=== PATIENT | male | born 1950 | race Caucasian/White ===

== ENCOUNTER 2018-11-08 14:51 | Inpatient (IN) | payer OTHER ==
--- NOTE | 2018-11-08 15:20 | EDPHY ---
H & P Smoking Status: Never smoked Time Seen by Provider: 11/08/18 14:55 HPI/ROS: CHIEF COMPLAINT: Fall HISTORY OF PRESENT ILLNESS: Patient is a 68-year-old male who presents emergency department after having a fall. The patient was changing his for his filter. He was standing on the 2nd step of a step stool. He states he had a mechanical fall lost his balance. "I did account from my belly."Patient fell back landing on his left leg. He may have struck his head but he has not think that was substantial. He did not lose consciousness. He subsequently tried to stand and walk. His left knee "gave out."He has significant pain in his left knee. He has mild pain in his left ankle. He has mild discomfort in his right knee. Patient states he struck his head on the counter when he fell the 2nd time. He did not lose consciousness. He has mild neck discomfort. No numbness or tingling. No visual change. No vomiting. Patient denies any preceding symptoms to the event. REVIEW OF SYSTEMS: 10 systems were reveiwed and are negative with the exception of the elements mentioned in the history of present illness. (Ann Amin) Past Medical/Surgical History: Includes BPH, diabetes Past surgical history: Negative Social history: The patient drinks alcohol occasionally (Ann Amin) Physical Exam: GENERAL: Well-appearing, in no acute distress, alert. HEAD: Patient has a 2 cm laceration at the base of his occiput. No crepitus. EYES: PERRLA, EOMI, normal to inspection. ENT: Airway intact, no dental or oral injury, no malocclusion, no hemotympanum , normal external examination. NECK: The trachea is midline. There is no crepitus. The C-spine is nontender. NEXUS criteria is negative (no midline tenderness, no distracting injury, no altered mental status, no recent alcohol use, no focal neurologic deficit). RESPIRATORY: [Clear to auscultation bilaterally, no rales, rhonchi or wheezing. Chest wall: Normal to appearance. No crepitance or deformity. CVS: Regular rate and rhythm, no rubs, murmurs, or gallops. ABDOMEN: Soft, nontender, nondistended, no bruising or abrasions. Pelvis: Stable. No tenderness palpation. GENITAL/RECTAL: Normal external exam. BACK: Normal to inspection, no spinal tenderness, no spinal step off, no notable bruising or abrasions. SKIN: Normal color, warm, dry. No pallor or diaphoresis. EXTREMITIES: Right upper extremity: Atraumatic. No visible signs of trauma. No tenderness palpation. Neurovascular intact distally. Left upper extremity: Atraumatic. No visible signs of trauma. No tenderness palpation. Neurovascular intact distally. Right lower extremity: Atraumatic appearing. No visible signs of trauma. The mild right patellar tenderness to palpation. No crepitus. Neurovascular intact distally. No ligamentous laxity Left lower extremity: Patient has significant swelling of his left knee. There is patellar tenderness to palpation.. Neurovascular intact distally. Due to the swelling of his knee his ligaments were not stressed. NEURO/PSYCH: Alert and oriented x 3, GCS 15, normal mood and affect, normal motor sensory exam. (Ann Amin S) Constitutional: Initial Vital Signs Temperature (C) 36.7 C 11/08/18 15:03 Heart Rate 104 H 11/08/18 15:03 Respiratory Rate 18 11/08/18 15:03 Blood Pressure 167/82 H 11/08/18 15:03 O2 Sat (%) 93 11/08/18 15:03 O2 Delivery Mode Room Air Allergies/Adverse Reactions: No Known Allergies Allergy (Unverified 04/14/14 19:26) Home Medications: Medication Instructions Recorded Finasteride [Proscar 5 MG (*)] 5 mg PO DAILY 11/08/18 Metformin HCl [Metformin 1000 mg] 1,000 mg PO BID 11/08/18 Tamsulosin HCl [Tamsulosin HCl] 0.8 mg PO BID 11/08/18 glipiZIDE [Glipizide ER] 5 mg PO DAILY 11/08/18 Medical Decision Making - Diagnostics Imaging: Discussed imaging studies w/ senior microstrategy developer Radiologist - Diagnostics Imaging Results: Imaging Impressions Knee X-Ray 11/08/18 00:00 Impression: 1. No definite acute fracture. 2. Dystrophic calcification superior to bilateral patellae may represent ossifications within the suprapatellar recess of the joint, dystrophic calcification within the quadriceps tendon, or age indeterminate avulsion injuries. Perhaps acute on chronic on the left. Findings discussed with Emergency Department physician, Dr. Ann Amin on November 08, 2018 at 1612 hours. Knee X-Ray 11/08/18 15:16 Impression: 1. No definite acute fracture. 2. Dystrophic calcification superior to bilateral patellae may represent ossifications within the suprapatellar recess of the joint, dystrophic calcification within the quadriceps tendon, or age indeterminate avulsion injuries. Perhaps acute on chronic on the left. Findings discussed with Emergency Department physician, Dr. Ann Amin on November 08, 2018 at 1612 hours. Ankle X-Ray 11/08/18 15:17 Impression: 1. Suspect acute cortical chip fractures off the anterior process of the talus. 2. Moderate osteoarthritis and soft tissue swelling. Findings discussed with Emergency Department physician, Dr. Ann Amin on November 08, 2018 at [address] 11/08/18 15:17 Impression: 1. No acute fracture or soft tissue swelling. 2. Diffuse idiopathic skeletal hyperostosis and ossification of the posterior longitudinal ligament. 3. If the patient has persistent pain or neurologic deficits, consider cervical spine MRI. Findings discussed with Emergency Department physician, Dr. Ann Amin on November 08, 2018 at [address] 11/08/18 15:17 Impression: Negative. No acute fracture or evidence of acute intracranial injury. Findings discussed with Emergency Department physician, Dr. Ann Amin on November 08, 2018 at 1654 hours. Procedures: Laceration Repair Verbal consent obtained by patient. Risks discussed, including but not limited to infection, pain, retained foreign body, need for additional repair, poor cosmetic result, tendon damage, nerve damage, poor wound healing, vascular damage. Alternatives to repair discussed. [place] protocol used to establish correct patient, procedure, equipment, gwot ia/ilo intelligence support, and site. Anesthesia obtained by local infiltration. Anesthetized with 1% lidocaine with epinephrine. Laceration location posterior scalp, length 3 cm, depth 5 mm, Repair type simple. Patient was prepped and draped in usual sterile fashion. Hemostasis achieved with direct pressure. Wound explored through full range of motion and entire depth of wound probed and visualized with gloved finger. No suspicion for nerve damage, tendon damage, underlying fracture, vascular damage, foreign body, or contamination. Area was cleansed with Shur-Clens and irrigated with sterile saline as per protocol. No foreign body or material removed. Repair method 4.0 Prolene interrupted sutures. Six of sutures placed. Well aligned, closely approximated. wound was dressed with antibiotic ointment. Patient tolerated well with no immediate complications. Wound care: Clean and dry x 24 hours, gently clean with soap and water, cover with topical antibiotic ointment/bandage. Suture/Staple removal: 5-7 Days (Lakeshia Jovel) ED Course/Re-evaluation: In the emergency department I discussed possible etiologies with the patient. I answered all his questions. He consented to head and C-spine CT. Bilateral knee x-rays were ordered. Left ankle x-ray was ordered. I discussed laboratory studies with the patient however, he would prefer not to have these completed. Left ankle: Please refer the dictated report. An acute cortical chip fracture of the anterior process of the talus. Osteoarthritis Bilateral knee: Please refer the dictated report. There is no definite fracture noted. I was concerned there could be an acute injury to the left patella. Head CT: C-spine CT: Please refer the dictated report Patient was placed in left knee immobilizer due to my concerns for a knee injury. Patient was told to keep the splint in place and be nonweightbearing until he follows of both Orthopedics. Patient was also placed in a short-leg posterior left ankle Ortho Glass splint. The patient is told to keep this splint in place until follow-up. Patient was ambulated in the emergency department. However, when he attempt using crutches he fell back landing on the ground. He now complains of pain to his right knee and right foot. He also complains of increasing neck pain. Patient denies any weakness or numbness. Patient denies striking his head. He has no headache. No nausea vomiting. No loss of consciousness. GENERAL: N acute distress, alert. HEENT: Eyes normal to inspection. NECK: Normal, supple. The no new spinal tenderness to palpation RESPIRATORY: Clear to auscultation bilaterally, no rales, rhonchi or wheezing. No chest wall tenderness CVS: No respiratory distress. ABDOMEN: Soft, nontender. BACK: No spinal tenderness. Normal to inspection, no CVA tenderness. SKIN: Normal color, no rash, warm, dry. No pallor. EXTREMITIES: Patient has mild swelling on his right knee. Mild right patellar tenderness to palpation. Patient has mild right foot tenderness palpation. No significant swelling. Neurovascular intact distally. NEURO/PSYCH: Alert and oriented, normal mood and affect, normal motor sensory exam. No obvious cranial nerve deficit. Repeat right knee x-ray and right foot x-ray were ordered. CT of the C-spine was ordered I discussed plan with the patient. I answered all of his questions. Discussed case with the hospitalist service. Dr. Dawson will admit. Patient agrees with this plan. I discussed case with Orthopedics, Dr. Saldaña. They will consult. Repeat CT of this cervical spine: No change. Please refer the dictated report by Dr. Ho. (Ann Amin) Differential Diagnosis: My differential includes but not limited to closed-head injury, subarachnoid hemorrhage, subdural hematoma, epidural hematoma, skull fracture, laceration, foreign body, spinal injury, knee fracture, knee dislocation, vascular injury, ligamentous injury (Ann Amin) Departure - Departure Disposition: [facility] Inpatient Acute Clinical Impression: Head injury Qualifiers: Encounter type: initial encounter Qualified Code(s): S09.90XA - Unspecified injury of head, initial encounter Scalp laceration Qualifiers: Encounter type: initial encounter Qualified Code(s): S01.01XA - Laceration without foreign body of scalp, initial encounter Closed left ankle fracture Qualifiers: Encounter type: initial encounter Qualified Code(s): S82.892A - Other fracture of left lower leg, initial encounter for closed fracture Injury, knee Qualifiers: Encounter type: initial encounter Laterality: left Qualified Code(s): S89.92XA - Unspecified injury of left lower leg, initial encounter Condition: Good
[2018-11-08 18:33] LABS: PLATELET COUNT 205 10^3/uL (150-400)
[2018-11-08] MEDS ORDERED: CYCLOBENZAPRINE 10 MG TAB PO ONE (19:03)
[2018-11-08] MEDS ORDERED: KETOROLAC 15 MG/1 ML SDV IVP ONE (19:03)
[2018-11-08] MEDS ORDERED: KETOROLAC 15 MG/1 ML SDV ONE (19:11)
[2018-11-08] MEDS ORDERED: ONDANSETRON DISINTEGRATING 4 MG TAB PO PRN (21:17)
[2018-11-08] MEDS ORDERED: ONDANSETRON 4 MG/2 ML VIAL IVP PRN (21:17)
[2018-11-08] MEDS: ACETAMINOPHEN 500 MG TAB PO SCH (22:09)
--- NOTE | 2018-11-08 22:17 | GHP ---
[f rep st] HISTORY AND PHYSICAL DATE OF ADMISSION: 11/08/2018 HISTORY OF PRESENT ILLNESS: The patient is a 68-year-old gentleman with history of well-controlled d iabetes, hypertension, as well as BPH. He had a mechanical fall today. He was working on a step sto ol and was too close to the wall. He bumped his belly into it, and fell backwards. He hit his head and his left side. He had a hard time getting up. Ultimately, he called 911, and he came in. He had some stitches in t he back of his head. He had what sounds like a couple of cortical chip fractures off the anterior po rtion of his talus bone. He was all set to go home, but when they were ambulating him with crutches, he fell again and was subsequently readmitted. He had cervical spine fractures that were negative. He denies antecedent palpitations, chest pain, shortness of breath, and loss of consciousness. He d oes not have a history of syncope. He does not have bradycardia. He does not have known coronary di sease. REVIEW OF SYSTEMS: Complete 10-point review of systems conducted and negative unless noted in the HP I. PAST MEDICAL HISTORY: Diabetes, BPH, hyperlipidemia, hypertension. ALLERGIES: No known drug allergies. HOME MEDICATIONS: Finasteride, glipizide, metformin, tamsulosin. 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 FAMILY HISTORY: Reviewed and unremarkable. PHYSICAL EXAMINATION: VITAL SIGNS: Temp 36.7, blood pressure 150/81, pulse low 100s, breathing 18 t imes a minute, 97% on room air. GENERAL: No acute distress. HEENT: Sclerae anicteric. Oropharynx clear. Mucous membranes moist. NECK: Supple. No lymphadenopathy or JVD. LUNGS: Clear to auscul tation bilaterally. HEART: S1, S2. ABDOMEN: Obese, soft, nontender, nondistended. EXTREMITIES: His left lower extremity is in a knee immobilizer. There is some ecchymosis around the kneecap. His left foot is in a posterior plaster splint with an Bc bandage. He is neurovascularly intact. SKIN : Without rash. NEUROLOGIC: Nonfocal. LABS: White count 22.3, hematocrit 46, platelets are 205,000. Sodium 134, potassium 4.1, chloride 1 04, bicarb 19, BUN 27, creatinine 0.9, glucose 180. UA is unremarkable. IMAGING: He had many films. Knee x-ray showed possible [id number] chip fracture from the left patella. Ankle x-ray shows as in the HPI. Cervical spine CT shows nothing acute. Film taken after his 2nd fall showed a noncontrast head CT th at was unremarkable. His repeat neck CT was okay. Foot and knee films were also okay. I discussed the case with Dr. Ann Amin. ASSESSMENT/PLAN: A 68-year-old gentleman, with mechanical fall, left ankle fracture, possible patell ar fracture, unsteadiness on his feet. 1. Fall: The original fall was mechanical. The second I think was pain, perhaps some clumsiness. When I saw the patient, he was not altered. He just needs, I think, to work with physical therapy an d crutches. 2. Ankle fracture: I suspect this is a nonoperative fracture, with a couple of weeks of nonweightbe aring. I have asked Orthopedics to see him in the morning. 3. Diabetes: We will continue his oral medications. It sounds like he is well controlled. 4. Tachycardia: This is mild. Will follow. 5. Leukocytosis: I think this is a reaction to his fall and his stitches. Will follow. He is afeb rile, without a source of infection. 6. Prophylaxis: SCDs, but does need low-molecular heparin if he stays in the hospital longer. DISPOSITION: At this point, I will not pursue a disposition. Observation status. /[id number]/MODL
[2018-11-08] MEDS: TAMSULOSIN HCL 0.4 MG CAP PO SCH (22:28)
[2018-11-09] MEDS ORDERED: KETOROLAC 15 MG/1 ML SDV IVP SCH
[2018-11-09] MEDS ORDERED: ceFAZolin 2 GM/DEXTROSE 100 ML IV ONE (01:46)
--- NOTE | 2018-11-09 03:37 | GCON ---
[f rep st] CONSULTATION HISTORY OF PRESENT ILLNESS: Patient is a pleasant 68-year-old male who presented to the ED on 11/08/2018, after sustaining a mechanical fall while working at a step stool trying to install a heater. He fell backwards and landed and his left side. He went to go get ice for his left knee and ankle, which was hurt during the fall, at which time his knee buckled and he then injured his right knee and ankle. Due to the history of difficulty getting up and the head laceration, called 911, and was seen in the ED. Radiographs in the ED were performed of the left lower extremity, which showed a talonavicular fracture, which he was placed in a short-leg posterior splint for, as well as a possible bipartite versus patellar fracture, which he was given a knee immobilizer for, as well as for the swelling that was present to his left knee. During his discharge from the ED, he attempted to ambulate on crutches, and again was unable to bear weight this time, falling once again and he was subsequently admitted. His laceration of his head was repaired in the ED. At this time, he denies any history of prior injury to his bilateral lower extremities. He was ambulating normal prior to these falls. He has been n.p.o. since our time seeing him this morning. He admits bilateral knee and ankle swelling as well as bruising present to both knees, but denies any evidence of skin breakthrough at this time. He denies any worsening distal range of motion or strength, any cramping in the calves or ankles. He denies any other mechanical symptoms at this time. He did not lose consciousness at the time of the fall. NPO STATUS: He has been n.p.o. since midnight tonight. CODE STATUS: DNR status, full code. POWER OF SENIOR WEALTH ADVISOR STATUS: He is his own medical power of tax associate attorney and is able to make his own decisions. REVIEW OF SYSTEMS: Otherwise, 10-point review of systems is negative except for stated above. PAST MEDICAL HISTORY: Pertinent for diabetes, BPH, hyperlipidemia, hypertension. He denies any PSH. ALLERGIES: No known drug allergies. MEDICATIONS: Home medications include finasteride, glipizide, metformin, and tamsulosin. 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 Patient is . He denies any history of alcohol, smoking, or IVDU at this time. SURGICAL HISTORY: None. FAMILY HISTORY: Denies any history of blood clots, bleeding disorders. Does have multiple family members with diabetes. PHYSICAL EXAMINATION: GENERAL: Patient is alert, oriented, able to respond appropriately to questions , in no acute distress. HEENT: Patient has a 2 cm laceration at the base of his occiput, which has been repaired at this time with no abnormal bleeding, oozing, discharge. He is minimally tender throughout. EOMs intact. Moist buccal mucosa. Patent nares. Hearing intact. NECK: No lymphadenopathy. Mildly tender to palpation over base of spine underneath sutures. Limited AROM at this time secondary to pain from the laceration repair. SPINE: Otherwise NTTP throughout. CV: Nonlabored breathing. No diaphoresis. MUSCULOSKELETAL: Non-focalized exam of bilateral upper extremities, no erythema, edema, ecchymosis, or pallor. FROM with 5/5 strength present. NTTP B/L with no focal deficits noted. Brisk cap refill present B/L. Focalized exam of bilateral lower extremities: No e/e/e/c noted unless listed below. All compartments are soft with negative passive stretch b/l and no evidence of skin breakthrough. Right knee: is with a grade 2+ effusion and ecchymoses present throughout. Palpable defects at distal quad insertion at SPP. Medial and lateral joint line tenderness present. ROM: Unable to maintain active extension of either knee against gravity. Is able to attempt flexion to 10 degrees limited by pain to patient. No evidence of skin breakthrough. All compartments soft. Grossly negative ligamentous exam though limited by large amount of swelling. Negative Errol and Bounce. Right ankle: There is 1+ nonpitting edema present through the lateral malleolus of the ankle. There is tenderness to palpation of the ATFL and CFL in the right ankle. Ligaments appear grossly stable at this time. It is difficult to assess due to the severe pain to the patient. Right lower extremity calf soft, supple, NTTP with negative Homans. Left knee: 2 cm palpable defect to the left vastus lateralis and distal quad tendon. Unable to maintain SLR. Grade 1+ effusion present to left knee with mild ecchymoses noted. Lateral joint line tenderness present. ROM 0-10 and he is unable to maintain his extensor mechanism on this side as well. Ligaments appear grossly stable at this time. It is difficult to assess due to the severe pain to the patient. Left lower extremity calf soft, supple, NTTP with negative Homans. Left ankle: TTP over the talonavicular joint, ATFL, and PFL with 1+ nonpitting edema present to the lateral aspect of his left ankle. Ligaments are grossly stable, although full ligamentous exam is limited by severe pain to patient. Patient is able to actively plantar flex and dorsiflex bilateral ankles. Able to wiggle all toes without difficulty. DNVI B/L with no focal deficits. NEURO: The patient is alert, oriented, able to respond appropriately to questions. Cranial nerves grossly intact. SECONDARY SURVEY: Negative, except for as stated above. INITIAL VITAL SIGNS: Upon presentation, afebrile, mildly tachycardic at 104, respirations of 18, hypertensive at 167/82, oxygen is 93 on room air. RADIOGRAPHS: Radiographs of both knees notable for patella baja and abnormal angulation, concerning for quadriceps rupture. No fractures, malalignments, or deformities otherwise seen. Positive previous bipartite patella versus osteophytes and degenerative findings present throughout the knee. Radiographs of the right ankle show no fractures, malalignments, or deformities. Osteophytes present through the ankle; however, the mortise is intact. The radiographs of left ankle show an avulsion fracture to the anterolateral aspect of the talonavicular joint with no other fractures, malalignments, or deformities noted. Mortise intact. ASSESSMENT: Bilateral quadriceps tendon ruptures, as well as bilateral lateral ankle sprains, and small left ankle talonavicular avulsion fracture. PLAN: At this time, the patient's physical exam findings and radiographs were explained at length. We recommended at this time surgical repair of bilateral quadriceps tendons. At this time, he has been placed into knee immobilizers. NWB BLE. Additionally, he has been placed in bilateral posterior short-leg splints. Continue ice, elevation of the extremities, and NWB. N.p.o. At this time, we will place him on the surgical schedule as soon as possible. Advised patient that he will receive informed surgical consent tomorrow. Additionally, recommend rest, ice, massage to the bilateral knees, which he will be able to ice at this time. We will continue to follow him during his stay there. We appreciate the consultation. Advised patient to watch for any worsening pain, abnormal numbness, tingling, worsening change in heat or color of his extremities, cramping in his calves or ankles, and to seek immediate medical attention if seen. He understands and agrees with this course of action. We have asked that the patient no longer be receiving Toradol as he will be having surgery today, 11/09/2018. Patient was seen and examined in conjunction with Dr. Saldaña. /[id number]/MODL MTDD
[2018-11-09] MEDS: HYDROmorphONE/DILAUDID 1 MG/ML INJ IVP PRN ×3 (05:05→23:52)
[2018-11-09] MEDS: ACETAMINOPHEN 500 MG TAB PO SCH ×3 (05:07→20:44)
[2018-11-09] MEDS: TAMSULOSIN HCL 0.4 MG CAP PO SCH ×2 (08:36→20:44)
[2018-11-09] MEDS: glipiZIDE XL 5 MG TAB PO SCH (08:36)
[2018-11-09] MEDS: metFORMIN HCL 500 MG TAB PO SCH ×2 (08:36→18:48)
[2018-11-09] MEDS: FINASTERIDE 5 MG TAB PO SCH (08:36)
[2018-11-09] MEDS ORDERED: D50W 25 GM/50 ML SYR IVP PRN (09:58)
[2018-11-09] MEDS: NS 1,000 ML IV SCH (10:22)
[2018-11-09] MEDS: INSULIN LISPRO 100 UNIT/ML SC SCH ×2 (12:07→18:54)
--- NOTE | 2018-11-09 12:48 | SOAPPROG ---
SOAP Progress Note Assessment/Plan: Assessment: Bilateral quad tendon ruptures and ankle sprains, small L ankle avulsion fracture. Plan: To OR today for B quad tendon repairs and I&D/arthrotomy/washout/EOH. NPO. Consented after discussion of R/B/A. All questions answered. To OR in ~ 1 hour for surgery. Anticipate closed mngmt of B ankles/foot. 11/09/18 12:46 11/09/18 12:47 Subjective: Admitted due to inability to walk and recurrent falls. NPO since MN. No N/T or other complaints. Objective: Vital Signs Temp Pulse Resp BP Pulse Ox 36.8 C 91 14 170/82 H 96 11/09/18 11:27 11/09/18 11:27 11/09/18 11:27 11/09/18 11:27 11/09/18 11:27 Laboratory Results 11/08/18 18:10 11/08/18 18:10 11/08/18 11/09/18 11/10/18 05:59 05:59 05:59 Output Total 255 250 Balance -255 -250 A+ox3. Bilateral quad tendon ruptures with inability to maintain SLR against gravity and palpable defects at SPP. B ankle sprains with L sided small avulsion fracture at the level of TNJ. DNVI. Compartments soft. ICD10 Worksheet Patient Problems: Problems Problem Status Onset Closed left ankle fracture Acute Head injury Acute Injury, knee Acute Scalp laceration Acute
[2018-11-09] MEDS ORDERED: LR 1,000 ML IV ONE (13:02)
[2018-11-09] MEDS ORDERED: CEFAZOLIN 2 GM/DEXTROSE/100 ML BAG IV ONE (13:13)
[2018-11-09] MEDS ORDERED: BUPIVACAINE/EPI 0.25% 10 ML SDV ONE ×3 (13:42→16:24)
[2018-11-09] MEDS ORDERED: fentaNYL 100 MCG/2 ML INJ ONE ×3 (13:52→17:03)
[2018-11-09] MEDS ORDERED: ONDANSETRON 4 MG/2 ML VIAL ONE (13:52)
[2018-11-09] MEDS ORDERED: PROPOFOL 200 MG/20 ML VIAL ONE (13:52)
[2018-11-09] MEDS ORDERED: LIDOCAINE 2% 100 MG/5 ML SYR ONE (13:52)
--- NOTE | 2018-11-09 13:53 | PDANEPAE ---
MATT Past Medical History - Pulmonary History Hx Oxygen in Use at Home: No Hx Sleep Apnea: Yes Sleep Apnea Screening Result - Last Documented: Positive - Endocrine History Hx Diabetes: Yes MATT Review of Systems Review of Systems: ANE Patient History - Allergies Allergies/Adverse Reactions: No Known Allergies Allergy (Unverified 04/14/14 19:26) - Home Medications Home Medications: Finasteride [Proscar 5 MG (*)] 5 mg PO DAILY 11/08/18 [Last Taken 11/08/18 08:00 ] Metformin HCl [Metformin 1000 mg] 1,000 mg PO BID 11/08/18 [Last Taken 11/08/18 08:00] Tamsulosin HCl [Tamsulosin HCl] 0.8 mg PO BID 11/08/18 [Last Taken 11/08/18 08: 00] glipiZIDE [Glipizide ER] 5 mg PO DAILY 11/08/18 [Last Taken 11/08/18 08:00] - NPO status NPO Since - Liquids (Date): 11/09/18 NPO Since - Liquids (Time): 00:00 NPO Since - Solids (Date): 11/09/18 NPO Since - Solids (Time): 20:00 - Smoking Hx Smoking Status: Never smoked MATT Labs/Vital Signs - Labs Result Diagrams: 11/08/18 18:10 11/08/18 18:10 - Vital Signs Blood Pressure: 148/99 Heart Rate: 90 Respiratory Rate: 18 O2 Sat (%): 96 Height: 167.64 cm Weight: 99.904 kg ANE Physical Exam - Airway Neck exam: FROM Mallampati Score: Class 3 - Pulmonary Pulmonary: no respiratory distress - Cardiovascular Cardiovascular: regular rate and rhythym - ASA Status ASA Status: III ANE Anesthesia Plan Anesthesia Plan: GA w LMA
--- NOTE | 2018-11-09 14:10 | HOSPPROG ---
Hospitalist Progress Note Assessment/Plan: 68y male with mechanical fall. First encounter, chart reviewed. #Fall -Bilateral quad tendon ruptures and ankle sprains -small L ankle avulsion fracture -to OR today -B quad tendon repairs -I&D/arthrotomy/washout/EOH #DM -hold home meds -SSI #Leukocytosis -follow -acute response #Dispo -unclear -await postop eval -change to inpt status Subjective: No pain currently. Feeling well. Awaiting for surgery. Objective: Vital Signs Temp Pulse Resp BP Pulse Ox 36.8 C 90 18 148/99 H 96 11/09/18 13:03 11/09/18 13:53 11/09/18 13:53 11/09/18 13:53 11/09/18 13:53 Laboratory Results 11/08/18 18:10 11/08/18 18:10 11/08/18 11/09/18 11/10/18 05:59 05:59 05:59 Output Total 255 250 Balance -255 -250 - Physical Exam Constitutional: no apparent distress, appears nourished, obese Eyes: PERRL, anicteric sclera, EOMI Ears, Nose, Mouth, Throat: moist mucous membranes, hearing normal, ears appear normal Cardiovascular: regular rate and rhythym, No JVD, No edema Respiratory: no respiratory distress, no rales or rhonchi, reduced air movement Gastrointestinal: normoactive bowel sounds, No tenderness, No ascites Skin: warm, normal color, No mottled Musculoskeletal: joint tenderness, pain with ROM, muscular tenderness, generalized weakness Neurologic: AAOx3 Psychiatric: interacting appropriately, not anxious, not encephalopathic, thought process linear ICD10 Worksheet Patient Problems: Problems Problem Status Onset Head injury Acute Scalp laceration Acute Closed left ankle fracture Acute Injury, knee Acute
[2018-11-09] MEDS ORDERED: NALOXONE HCL 0.4 MG/ML INJ IVP PRN ×2 (15:14)
[2018-11-09] MEDS ORDERED: ONDANSETRON 4 MG/2 ML VIAL IVP PRN (15:14)
[2018-11-09] MEDS ORDERED: ALBUTEROL 3 ML DEYVIAL IH PRN (15:14)
--- NOTE | 2018-11-09 16:15 | ASMTCMCOM ---
CM Note CM Note Notes: Pt is a 68 y/o man admitted for a mechanical fall and hit his left side of his head. Therapies have been ordered and awaiting recommendations. Needs are TBD at this time. CM to follow. Plan: TBD Date Signed: 11/09/2018 04:15 PM Electronically Signed By:JULIAN Arias
[2018-11-09] MEDS ORDERED: BUPIVACAINE 0.25% 30 ML SDV ONE (16:22)
--- NOTE | 2018-11-09 16:44 | POSTOPPROG ---
Post Op Note Date of Operation: 11/09/18 Surgeon: Eddi Saldaña Ham Rolling Machine Operator: JOSEFINA Luong Anesthesia: GET(General Endotracheal) Pre-op Diagnosis: Bilateral quadriceps tendon rupture Post-op Diagnosis: Bilateral quadriceps tendon rupture Indication: Bilateral quadriceps tendon rupture Procedure: Bilateral quadriceps tendon repair Findings: Bilateral quadriceps tendon rupture Inf/Abcess present in the surg proc area at time of surgery?: No Depth: Deep Incisional (Fascial) EBL: Minimal
--- NOTE | 2018-11-09 16:51 | POSTANESTH ---
Post Anesthetic Evaluation Cardiovascular Status: Similar to Pre-Op Cond Level of Consciousness/Mental Status: Mildly Sleepy, Arousable Pain Control: Adequate, Prn Tx Ordered Nausea/Vomiting Control: Adequate, Prn Tx Ordered Complications Possibly Related to Anesthesia: None Noted
[2018-11-09] MEDS: fentaNYL 100 MCG/2 ML INJ IVP PRN ×2 (17:06→17:20)
[2018-11-09] MEDS ORDERED: HYDROCODONE/APAP 5/325 TAB ONE (17:28)
[2018-11-09] MEDS: HYDROCODONE/APAP 5/325 TAB PO PRN ×3 (17:30→23:57)
--- NOTE | 2018-11-09 17:50 | GOP ---
[f rep st] OPERATIVE REPORT DATE OF OPERATION: 11/09/2018 SURGEON: Eddi Saldaña MD ACCOUNTS PAYABLE PROCESSOR: Neeta Oviedo PA-C. PREOPERATIVE DIAGNOSIS: Bilateral quad tendon ruptures. POSTOPERATIVE DIAGNOSIS: Bilateral quad tendon ruptures. PROCEDURE PERFORMED: 1. Left knee quad tendon repair, retinacular repair, arthrotomy with irrigation, evacuation of hemat ken and debridement. 2. Right knee quad tendon repair, retinacular repair, arthrotomy with irrigation, evacuation of alan wei and debridement. FINDINGS: Complete quad rupture on both knees with extension to the medial and lateral retinaculum b ilaterally. There was extensive hemarthrosis in both knees, right greater the left. The superior po le of both patellas was notable for relatively extensive osteophytes and spurring, as well as additio nal areas of bony inclusion within the quad tendon. Otherwise, the quad tendon was intact and of goo d quality proximally at the level of the rupture bilaterally. There was severe synovitis throughout. There were no loose bodies found or palpated throughout the intra-articular space of both knees. SPECIMENS: None. ESTIMATED BLOOD LOSS: 20 mL on both knees. INDICATIONS: This is a 68-year-old male who was working on a ladder yesterday and suffered a fall. He attempted to get up from his fall and then had a secondary fall as his legs gave way. He was brou ght into the [facility] ER and was found to have some bruising, as well as injuries to both an kles. He apparently was then set up to attempt ambulation again in the Emergency Department for disc harge and at that time, his knees gave way again. The patient was admitted to the medicine service. I was consulted as the on-call orthopedic surgeon to see the patient up on the floor. He was found to have obvious clinical exam consistent with quad tendon ruptures including palpable defect deep to an area of ecchymosis and bruising with hemarthrosis at the superior pole of the patella. He was juan a ble to maintain straight-leg raise or extension against gravity on both knees. His radiographs were also consistent with patella [place] and abnormal alignment consistent with the above. Due to his findi ngs and overall problems with the disruption of his knee extensor mechanisms, surgery was recommended . The patient was made n.p.o. after midnight. He was consented this morning. Please see History an d Physical for additional information. All of his questions were answered prior to surgery. He prov ided a signed, witnessed informed consent, which was placed in his chart. DESCRIPTION OF PROCEDURE: The patient was identified in the preop holding area and bilateral knees w ere signed as the designated operative site. The bilateral ankles were with severe sprains and there fore, they were protected throughout the period of surgery. The patient was taken back to the operat ing room, placed supine on the OR table and general anesthesia was obtained. He received 2 g IV prop hylactic cefazolin per protocol. He was placed supine on the OR table and wrapped proximally with ca st padding and nonsterile tourniquet bilaterally. Both knees were then prepped and draped in the usu al sterile manner. Please note that the procedure was identical for both knees, as they both had full-thickness quad ten don ruptures and both required repair. A midline incision was made over the superior pole of the patella over a length of approximately 7.5 to 8 cm. Esmarch exsanguination was used to inflate the tourniquet to 250 mmHg. A full-thickness de rmal incision was made and taken down through the full thickness of the dermal tissues, as well as miramontes bcutaneous fat. Careful dissection was taken down to the extensor retinaculum. In both cases, exten sive hemorrhage was encountered in this region. Suction irrigation was used to debride the area and clear the area of extensive hemorrhage. The obvious defect was then found with blunt dissection and dissection was carried up proximally to divide the paratenon over the level of the quad tendon. Dist ally at the level of patella, the torn and nonviable tissues were debrided, as well as proximally at the level of the quad tendon rupture. Extensive irrigation to approximately 1 L in both knees was us ed to irrigate the joint, as well as remove all coagulated blood and hemarthrosis. The knees were sw ept throughout the suprapatellar pouch and both gutters in order to assure sure no obvious defects or loose bodies. The intra-articular space was copiously irrigated with the sterile saline as well. O nce this was completed, the superior pole of the patella bilaterally was per prepared with a rongeur and curette in order to freshen up the bony surface and establish a bleeding bed for tendon repair. The quad tendon at its distal rupture site was also debrided to remove any tendon of poor-appearing q uality. A series of 3 suture anchors were used interspersed along the central and then medial and la teral aspects in appropriate positions approximately 1 cm apart from each other in order to achieve f ixation at the superior pole of patella. The Mitek 2.8 mm QuickAnchor with #2 Orthocord was used for each of the suture anchors; i.e., a total of 6, three in each knee. Standard technique was used wit h drilling through a cannula and then deployment of the anchor. Fixation was confirmed with lorenzo tu gging on the anchor to ensure no dislodging at the level of the suprapatellar pole. The suture ancho r was then used to whipstitch the tendon centrally, medially and laterally in line with the anchor in order to grasp the tendon and achieve appropriate suture fixation. The sliding portion of the sutur e was then used to slide through the anchor and to repair the tendon down to bone with excellent appo sition at all sites. Direct knot-tying was performed by me. Once the direct repair was completed, t he anchor was then brought out for a second row; i.e., a more anterior row in order to further plicat e the soft tissues over the direct rupture site. The suture was then cut down to the level of the kn ots. Once this was completed, the knee was flexed and confirmed to have appropriate apposition with knee flexion to at least 90 degrees. With the knee flexed approximately 30 degrees, the retinaculum was then repaired medially and laterally on both knees with multiple #2 Ethibond sutures. Once this was completed, the superficial tissues were further irrigated with sterile saline. Closure was then begun. 0-Vicryl was used to reapproximate the fat space and paratenon. 2-0 Vicryl was used to reapproximate the deep dermal layer. The skin was closed with marcela. The tourniquet was dropped prior to skin closure and hemostasis was confirmed throughout. Wounds were anesthetized with 0.25% Marcaine with e pinephrine. Sterile postop surgical dressings were applied. Both knees were placed in a hinged knee brace locked at 0 degrees. Both ankles were then re-splinted with their prior preop splints. The a nesthesia service and then took over to wake the patient up. TOURNIQUET TIME: Left knee is 51 minutes at 250 mmHg. Right knee 55 minutes at 250 mmHg. IMPLANTS: Mitek G2 QuickAnchor (2.8 mm) with #2 Orthocord x3 for each knee. DRAINS: None. COMPLICATIONS: None. DISPOSITION: The patient was extubated and transferred to PACU in stable condition. /[id number]/MODL
[2018-11-09] MEDS: ceFAZolin 2 GM/DEXTROSE 100 ML IV SCH (20:45)
--- NOTE | 2018-11-09 21:01 | PDMN ---
Medical Necessity Medical necessity: [facility] Musculoskeletal Surgery or Procedure GR yo s/p mechanical fall, eval reveals L ankle fx w/ possible patellar fx, pt unsteady on his feet. Initially OBS for workup/tx and ortho consult. Further eval by ortho reveals B/l quadriceps tendon rupture, as well as B/l lateral ankle sparains and small L ankle talonavicular avulsion fx. Urgent surgical repair of B/L quad tendons recommended and pt went to OR. Pt requires additional MN for post op care/management. Change to IP status 11/09/18@1411 per MD order.
[2018-11-09] MEDS: LISINOPRIL 10 MG TAB PO SCH (23:51)
[2018-11-10] MEDS: NS 1,000 ML IV SCH (05:13)
[2018-11-10] MEDS: ceFAZolin 2 GM/DEXTROSE 100 ML IV SCH (05:13)
[2018-11-10] MEDS: HYDROCODONE/APAP 5/325 TAB PO PRN ×2 (05:13→09:13)
[2018-11-10] MEDS: HYDROmorphONE/DILAUDID 1 MG/ML INJ IVP PRN ×3 (05:13→11:38)
[2018-11-10] MEDS: ACETAMINOPHEN 500 MG TAB PO SCH ×3 (05:14→22:17)
[2018-11-10] MEDS: FINASTERIDE 5 MG TAB PO SCH (09:21)
[2018-11-10] MEDS: TAMSULOSIN HCL 0.4 MG CAP PO SCH ×3 (09:21→20:00)
[2018-11-10] MEDS: glipiZIDE XL 5 MG TAB PO SCH (09:22)
[2018-11-10] MEDS: RIVAROXABAN 10 MG TAB PO SCH (09:22)
[2018-11-10] MEDS: metFORMIN HCL 500 MG TAB PO SCH ×2 (09:22→18:46)
[2018-11-10] MEDS: LISINOPRIL 10 MG TAB PO SCH (09:24)
[2018-11-10] MEDS: INSULIN LISPRO 100 UNIT/ML SC SCH ×3 (10:15→18:48)
--- NOTE | 2018-11-10 12:38 | SOAPPROG ---
SOAP Progress Note Assessment/Plan: Assessment:Pt. is POD#1 s/p bilateral quadricep tendon repairs and bilateral ankle sprains in addition to a small right avulsion fracture of the ankle. Having a difficult time getting pain below a "9" most of the time with the current dosing of Dilaudid and [place]. Plan: Continue to maintain clean, dry dressings to both legs with bc wraps in place as well as knee immobilizers. -Continue posterior splints to both ankles for bilateral ankle sprains -Continue to ice -Continue elevation -Continue to be NWB BLE's. -Continue pain management-consulted with Hospitalist service about starting a PRESSED OR BLOWN GLASS WORKER due to poor pain control currently-they will be ordering shortly. -Continue PT/OT -Continue Xarelto as ordered. -Please call with any questions or concerns [phone] Subjective: Pt. states pain is generally a 9/10 at most times. Has a small window with less pain after pain meds given, but very brief. No calf pain, no N /T of the extremities, no fevers, SOB, CP, Abd. Pain, V/D. Worked with PT yesterday and was able to get to the side of the bed, but feels upper body strength is limiting him in his mobility. Objective: Pt. calm, resting comfortably lying down in bed with legs elevated. Respirations are easy and unlabored. Bc wraps, dressing and knee immobilizers in place. Skin surrounding is not red, warm or swollen appearing. Calves are NTTP and compartements in both upper and lower legs are soft, as best able to assess with ankle splints in place. Distally sensation is intact to all toes, skin is warm, dry and pink, pedal pulses are brisk, able to move all toes without difficulty. 11/10/18 12:30 Objective: Vital Signs Temp Pulse Resp BP Pulse Ox 36.8 C 86 14 140/73 H 96 11/10/18 11:41 11/10/18 11:41 11/10/18 11:41 11/10/18 11:41 11/10/18 11:41 11/09/18 11/10/18 11/11/18 05:59 05:59 05:59 Intake Total 1890 Output Total 310 Balance 1580 ICD10 Worksheet Patient Problems: Problems Problem Status Onset Closed left ankle fracture Acute Head injury Acute Injury, knee Acute Scalp laceration Acute
[2018-11-10] MEDS: oxyCODONE IR 5 MG TAB PO PRN ×3 (13:32→20:00)
--- NOTE | 2018-11-10 13:40 | HOSPPROG ---
Hospitalist Progress Note Assessment/Plan: 68y male with mechanical fall. #Fall, mechanical -Bilateral quad tendon ruptures and ankle fracture -POD #1 tendon repair -small L ankle avulsion fracture -B quad tendon repairs -I&D/arthrotomy/washout/EOH #DM -hold home meds -restart soon -SSI #Leukocytosis -follow -acute response #Pain -increase meds #Dispo -unclear, SNF -await postop eval -change to inpt status Subjective: Up at edge of bed. Increased pain today. Objective: Vital Signs Temp Pulse Resp BP Pulse Ox 36.8 C 86 14 140/73 H 96 11/10/18 11:41 11/10/18 11:41 11/10/18 11:41 11/10/18 11:41 11/10/18 11:41 11/09/18 11/10/18 11/11/18 05:59 05:59 05:59 Intake Total 1890 Output Total 310 Balance 1580 - Physical Exam Constitutional: appears nourished, obese, uncomfortable Eyes: PERRL, anicteric sclera, EOMI Ears, Nose, Mouth, Throat: moist mucous membranes, hearing normal, ears appear normal Cardiovascular: No JVD, No tachycardia, No edema Respiratory: no respiratory distress, no rales or rhonchi, reduced air movement Gastrointestinal: normoactive bowel sounds, No tenderness, No ascites Skin: warm, no rashes or abrasions, No mottled Musculoskeletal: joint tenderness, pain with ROM, muscular tenderness, generalized weakness Neurologic: AAOx3 Psychiatric: interacting appropriately, not anxious, not encephalopathic, thought process linear ICD10 Worksheet Patient Problems: Problems Problem Status Onset Head injury Acute Scalp laceration Acute Closed left ankle fracture Acute Injury, knee Acute
--- NOTE | 2018-11-10 14:05 | ASMTCMCOM ---
CM Note CM Note Notes: Pt Chart reviewed. NWB lower extremities. ST & OT recommend IP Rehab and awaiting PT's recommendation. Contacted [facility] to assess. CM available for needs. PLAN: SNF/IP Rehab Date Signed: 11/10/2018 02:04 PM Electronically Signed By:Paris Maxwell
[2018-11-10] MEDS ORDERED: HYDROmorphONE/DILAUDID 1 MG/ML INJ IVP PRN (14:12)
[2018-11-10] MEDS ORDERED: HYDROmorphONE/DILAUDID 1 MG/ML INJ IVP ONE (14:47)
[2018-11-10] MEDS ORDERED: NALOXONE HCL 0.4 MG/ML INJ IVP PRN ×2 (14:47→15:19)
[2018-11-10] MEDS ORDERED: PHARMACY PAIN CONSULT 1 EA MISC SCH (15:00)
[2018-11-10] MEDS: HYDROmorphONE/DILAUDID 6 MG/30 ML PCA IV PRN (15:54)
[2018-11-11] MEDS: oxyCODONE IR 5 MG TAB PO PRN ×6 (01:14→20:30)
[2018-11-11] MEDS: ACETAMINOPHEN 500 MG TAB PO SCH ×3 (05:56→22:10)
[2018-11-11] MEDS: INSULIN LISPRO 100 UNIT/ML SC SCH ×3 (08:49→19:15)
[2018-11-11] MEDS: FINASTERIDE 5 MG TAB PO SCH (09:13)
[2018-11-11] MEDS: metFORMIN HCL 500 MG TAB PO SCH ×2 (09:14→20:30)
[2018-11-11] MEDS: LISINOPRIL 10 MG TAB PO SCH (09:14)
[2018-11-11] MEDS: RIVAROXABAN 10 MG TAB PO SCH (09:15)
[2018-11-11] MEDS: TAMSULOSIN HCL 0.4 MG CAP PO SCH ×2 (09:15→20:30)
[2018-11-11] MEDS: glipiZIDE XL 5 MG TAB PO SCH (09:15)
--- NOTE | 2018-11-11 14:31 | HOSPPROG ---
Hospitalist Progress Note Assessment/Plan: 68y male with mechanical fall. First encounter, chart reviewed. *Fall, mechanical -PT and OT *Bilateral quad tendon ruptures and ankle fracture -s/p tendon repair on 11/09 -small L ankle avulsion fracture -B quad tendon repairs -I&D/arthrotomy/washout/EOH #DM -hold home meds -SSI #Leukocytosis -repeat labs in a.m. #Pain -on CLOUD ENGAGEMENT PARTNER -will continue overnight and then dc in the a.m. #constipation -bowel protocol #hx of enlarged prostate -resumed Flomax # dVT prophylaxis: Xarelto #plan: remove bey in a.m., check labs in the morning, ordered IS for good pulmonary toileting, bowel protocol, dc CLOUD ENGAGEMENT PARTNER tomorrow Subjective: Clay who goes by Severino said his pain is well managed. Objective: Vital Signs Temp Pulse Resp BP Pulse Ox 36.5 C 106 H 16 140/78 H 94 11/11/18 11:56 11/11/18 11:56 11/11/18 11:56 11/11/18 11:56 11/11/18 11:56 11/10/18 11/11/18 11/12/18 05:59 05:59 05:59 Intake Total 1890 600 Output Total 310 Balance 1580 600 - Physical Exam Constitutional: not in pain, obese Eyes: PERRL Ears, Nose, Mouth, Throat: hearing normal Cardiovascular: regular rate and rhythym Respiratory: no respiratory distress, clear to auscultation, reduced air movement Gastrointestinal: normoactive bowel sounds, other (round and large) Skin: warm Musculoskeletal: generalized weakness Neurologic: AAOx3 Psychiatric: interacting appropriately ICD10 Worksheet Patient Problems: Problems Problem Status Onset Closed left ankle fracture Acute Head injury Acute Injury, knee Acute Scalp laceration Acute
[2018-11-11] MEDS ORDERED: MAGNESIUM HYDROXIDE 30 ML UDCUP PO PRN (14:52)
[2018-11-11] MEDS ORDERED: LACTULOSE 20 GM/30 ML UDCUP PO PRN (14:52)
--- NOTE | 2018-11-11 15:24 | SOAPPROG ---
SOAP Progress Note Assessment/Plan: Assessment: Bilateral quad tendon ruptures s/p repair yesterday and Grade III BLE ankle sprains with small L ankle avulsion fracture. Plan: Doing well POD 1 s/p B quad tendon repairs with associated procedures. NWB BLE in HKB's locked at 0 degrees. No ROM at knees or ankles at this time. Continue B ankle splints. Anticipate closed mngmt of B ankles/foot. Ice and elevation. Continue Xarelto and VTE mechanoprophylaxis x 14 days. Given extent of BLE injuries, he will need to be managed with wheelchair ambulation and max assist for BTC transfers. PT/OT. RICE and ice massage prn. No smoking or NSAIDs. 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 All questions have been answered and he is very happy with his care. Dispo to Acute Rehab likely. Please call with any questions. 11/11/18 15:18 Subjective: Pain well controlled. Working on BTC transfers with PT/OT. No MARCELA and no concerns by RN. Objective: Vital Signs Temp Pulse Resp BP Pulse Ox 36.8 C 101 H 18 161/79 H 95 11/11/18 14:00 11/11/18 14:00 11/11/18 14:00 11/11/18 14:00 11/11/18 14:00 11/10/18 11/11/18 11/12/18 05:59 05:59 05:59 Intake Total 1890 600 Output Total 310 Balance 1580 600 B knee incisions are benign. No palpable defect at repair site. Splints/dsgs taken down and changed. Bed is wet with urine. Trace effusion on L, 1+ on R. Mild edema, moderate ecchymosis, no erythema or calor BLE. ROM deferred at this time. Compartments soft. Calves NT, no edema, negative Rossy's BLE. DNVI BLE. ICD10 Worksheet Patient Problems: Problems Problem Status Onset Closed left ankle fracture Acute Head injury Acute Injury, knee Acute Scalp laceration Acute
[2018-11-11] MEDS: POLYETHYLENE GLYCOL 3350 17 GM PKT PO SCH ×2 (16:44→20:30)
[2018-11-11] MEDS: HYDROmorphONE/DILAUDID 6 MG/30 ML PCA IV PRN (17:13)
[2018-11-11] MEDS: SENNOSIDES/DOCUSATE SODIUM TAB PO SCH (20:30)
[2018-11-11] MEDS: BISACODYL 10 MG SUPP PR PRN (22:10)
[2018-11-12] MEDS: oxyCODONE IR 5 MG TAB PO PRN ×5 (03:58→22:00)
[2018-11-12 05:11] LABS: PLATELET COUNT 186 10^3/uL (150-400)
[2018-11-12] MEDS: ACETAMINOPHEN 500 MG TAB PO SCH ×3 (05:55→21:59)
[2018-11-12] MEDS: INSULIN LISPRO 100 UNIT/ML SC SCH ×3 (09:32→18:31)
[2018-11-12] MEDS: glipiZIDE XL 5 MG TAB PO SCH (09:34)
[2018-11-12] MEDS: LISINOPRIL 10 MG TAB PO SCH (09:34)
[2018-11-12] MEDS: RIVAROXABAN 10 MG TAB PO SCH (09:38)
[2018-11-12] MEDS: SENNOSIDES/DOCUSATE SODIUM TAB PO SCH ×2 (09:38→20:51)
[2018-11-12] MEDS: metFORMIN HCL 500 MG TAB PO SCH ×2 (09:38→18:31)
[2018-11-12] MEDS: POLYETHYLENE GLYCOL 3350 17 GM PKT PO SCH ×2 (09:39→20:52)
[2018-11-12] MEDS: FINASTERIDE 5 MG TAB PO SCH (09:39)
[2018-11-12] MEDS: TAMSULOSIN HCL 0.4 MG CAP PO SCH ×2 (10:00→20:51)
[2018-11-12] MEDS: METHOCARBAMOL 750 MG TAB PO PRN ×2 (10:06→18:31)
--- NOTE | 2018-11-12 10:44 | HOSPPROG ---
Hospitalist Progress Note Assessment/Plan: 68y male with mechanical fall. *Fall, mechanical -PT and OT *Bilateral quad tendon ruptures and ankle fracture -s/p tendon repair on 11/09 -small L ankle avulsion fracture -B quad tendon repairs -I&D/arthrotomy/washout/EOH #DM -hold home meds -SSI #Leukocytosis -better today. #Pain -had been on REAL ESTATE ACQUISITION ANALYST, now off, pain is well managed - #constipation -bowel protocol -resolve #hx of enlarged prostate -resumed Flomax #urinary retention -had >1500 ml this morning, bey placed back in -due to his immobility; concerned this will be ongoing, leave bey in for now # dVT prophylaxis: Xarelto #plan: Severino's to look at SNF for him to go to today, will likely dc in the morning. Subjective: Severino said his pain is well managed, not c/o pain. Objective: Vital Signs Temp Pulse Resp BP Pulse Ox 36.8 C 103 H 18 136/80 H 96 11/12/18 07:48 11/12/18 07:48 11/12/18 07:48 11/12/18 09:34 11/12/18 07:48 Laboratory Results 11/12/18 04:54 11/12/18 04:54 11/11/18 11/12/18 11/13/18 05:59 05:59 05:59 Intake Total 600 850 Output Total 725 Balance 600 125 - Physical Exam Constitutional: appears nourished, not in pain, obese Eyes: PERRL Ears, Nose, Mouth, Throat: hearing normal Cardiovascular: regular rate and rhythym Respiratory: no respiratory distress, reduced air movement Gastrointestinal: soft, non-tender abdomen Genitourinary: bey in urethra Skin: warm Musculoskeletal: other (non weight bearing) Neurologic: AAOx3 Psychiatric: interacting appropriately ICD10 Worksheet Patient Problems: Problems Problem Status Onset Closed left ankle fracture Acute Head injury Acute Injury, knee Acute Scalp laceration Acute
--- NOTE | 2018-11-12 11:08 | ASMTCMCOM ---
CM Note CM Note Notes: Met with pt and , inpt rehab declined pt d/t inability to be weight bearing. [facility] given list and would like referrals sent to [facility], [facility], [facility], and [facility]. Likely dc Friday, to tour facilities and let CM know. DC Plan: SNF Date Signed: 11/12/2018 11:07 AM Electronically Signed By:Renata Giron RN
--- NOTE | 2018-11-12 14:31 | SOAPPROG ---
SOAP Progress Note Assessment/Plan: Assessment: POD #2 b/l quad tendon repair, b/l ankle sprains and left talonavicular fx. Plan: NWB to BLLE. Maintain splints/knee braces. Wheelchair at this time. Maintain dry dressings. Reinforce prn. Contact our office if notice abnormal bleeding/oozing/discharge, change in heat/color around wound site. Do not change dressing unless d/w our office first. Ice to bilateral knees/ankles prn comfort. DVT Prophyalxis: ANDRÉS cage, SCDs, IS, Xarelto x 21 days per hospitalist reccs. PT/OT: appreciate your reccs. NWB to BLLE. Dispo: Acute rehab likely. Will D/C once cleared by hospitalists, CM, PT/OT. RTC 10-12 days following surgery for staple removal and repeat radiographs in office. Call [phone] Saldaña. Advised to watch for abnormal bleeding/oozing/discharge, change in heat/color around wound site or of extremities, worsening change in ROM or strength, cough , congestion, chest pain, cramping in calves/ankles and to seek immediate medical attn if seen. Patient seen/examined in conjunction with Dr. Saldaña. Subjective: Friend at bedside. 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 Denies worsening pain, abnormal numbness/tingling, cough, congestion, chest pain, worsening change in distal range of motion or strength, cramping in his calves or ankles, worsening change in heat or color of his extremities. Has been compliant in weight-bearing precautions and DVT prophylaxis. Objective: Vital Signs Temp Pulse Resp BP Pulse Ox 36.8 C 111 H 16 124/67 H 98 11/12/18 11:38 11/12/18 11:41 11/12/18 11:38 11/12/18 11:38 11/12/18 11:41 Laboratory Results 11/12/18 04:54 11/12/18 04:54 11/11/18 11/12/18 11/13/18 05:59 05:59 05:59 Intake Total 600 850 Output Total 725 Balance 600 125 Alert, able to respond appropriately to question/command. Non-labored breathing , no diaphoresis. Afebrile. Sitting up in chair. MS: Bilateral knees with dressingw in place and knee immobilizers in place with bilateral splints also in place. All compartments soft. No abnormal bleeding, oozing, discharge, change in heat or color around his extremities or from the wound sites. DNVI B/L with no focal deficits noted. Negative passive stretch B/L. Brisk cap refill present B/L. Able to wiggle all toes without difficulty. - Pending Discharge Pending Discharge Within 48 Hours: Yes Pending Discharge Date: 11/14/18 Pending Discharge Time: 11:00 ICD10 Worksheet Patient Problems: Problems Problem Status Onset Closed left ankle fracture Acute Head injury Acute Injury, knee Acute Scalp laceration Acute
[2018-11-12] MEDS: BISACODYL 10 MG SUPP PR PRN (20:51)
[2018-11-13] MEDS: METHOCARBAMOL 750 MG TAB PO PRN ×2 (04:51→09:23)
[2018-11-13] MEDS: oxyCODONE IR 5 MG TAB PO PRN ×2 (04:51→09:43)
[2018-11-13] MEDS: ACETAMINOPHEN 500 MG TAB PO SCH ×2 (05:55→11:37)
[2018-11-13 08:18] VITALS: BP 133/66
--- NOTE | 2018-11-13 08:24 | HOSPPROG ---
Hospitalist Progress Note Assessment/Plan: 68y male with mechanical fall. *Fall, mechanical -PT and OT *Bilateral quad tendon ruptures and ankle fracture -s/p tendon repair on 11/09 -small L ankle avulsion fracture -B quad tendon repairs -I&D/arthrotomy/washout #DM -hold home meds -SSI #Leukocytosis -better today. #Pain -had been on SUPERVISING PRODUCER, now off, pain is well managed #constipation -bowel protocol -resolve #hx of enlarged prostate -resumed Flomax #urinary retention -due to his immobility; concerned this will be ongoing, leave bey in for now # dVT prophylaxis: Xarelto #plan: dc to rehab today Subjective: Severino is feeling well, ready to dc Objective: Vital Signs Temp Pulse Resp BP Pulse Ox 36.8 C 80 17 133/66 H 94 11/13/18 08:00 11/13/18 08:00 11/13/18 08:00 11/13/18 08:00 11/13/18 08:00 Laboratory Results 11/12/18 04:54 11/12/18 04:54 11/12/18 11/13/18 11/14/18 05:59 05:59 05:59 Intake Total 850 500 Output Total 725 1625 Balance 125 -1125 - Physical Exam Constitutional: no apparent distress, not in pain Eyes: anicteric sclera Ears, Nose, Mouth, Throat: hearing normal Respiratory: no respiratory distress Genitourinary: bey in urethra Skin: warm Neurologic: AAOx3 Psychiatric: interacting appropriately ICD10 Worksheet Patient Problems: Problems Problem Status Onset Closed left ankle fracture Acute Head injury Acute Injury, knee Acute Scalp laceration Acute
--- NOTE | 2018-11-13 08:54 | PDIAF ---
- Diagnosis Diagnosis: bilateral quad tendon repair, bilat ankle sprain, L talonavicular fx Code Status: Full Code - Medication Management Discharge Medications: electronically signed and located in the Home Medication List. - Orders Services needed: Physical Therapy, Occupational Therapy Additional Instructions: Regarding Orthopedic Instructions for Both Knees/Ankles (Dr. Saldaña): -No weight bearing to either of your legs. Maintain braces and splints at this time. -Continue rest, ice, elevation of extremities. -Maintain dry dressings until first post-op appointment. Can reinforce as needed. Questions/concerns regarding dressing, abnormal bleeding/oozing/ discharge can be addressed to our office at [phone]. -DVT Prevention: continue Xarelto 10 mg daily for a total of 21 days post- operatively (surgery was on 11/09); after which we will have you continue aspirin therapy for an additional 2 weeks to prevent blood clots. Continue breathing spirometry as shown in hospital. -Pain Meds: take as directed and dispensed by the hospitalists. -Return to clinic in 7-10 days following surgery for first post op appointment or with questions/concerns which arise. -Please watch for fever, chills, abnormal numbness/tingling, worsening pain, bleeding/oozing/discharge, change in heat/color of extremity or around wound sites, abnormal distal swelling, cramping in your calves/ankles and to seek immediate medical attention if seen. Any questions/concerns feel free to call our office at [phone]. Lorenzo has been left in due to urinary retention, once oob more frequently; do a trial of removal CPAP at night Lisinopril is a new medication added during your hospital stay Monitor glucoses, patient had been on sliding scale during his stay. Home meds for diabetes all resumed - Labs/Radiology BMP Date: 11/16/18 CBC w/diff Date: 11/16/18 - Follow Up Care Current Providers and Referrals: Eddi Saldaña MD [Medical Doctor] - Patient,NotPresent [Unknown] - As per Instructions
[2018-11-13] MEDS: FINASTERIDE 5 MG TAB PO SCH (09:23)
[2018-11-13] MEDS: TAMSULOSIN HCL 0.4 MG CAP PO SCH (09:23)
[2018-11-13] MEDS: glipiZIDE XL 5 MG TAB PO SCH (09:23)
[2018-11-13] MEDS: RIVAROXABAN 10 MG TAB PO SCH (09:24)
[2018-11-13] MEDS: metFORMIN HCL 500 MG TAB PO SCH (09:24)
[2018-11-13] MEDS: INSULIN LISPRO 100 UNIT/ML SC SCH (09:25)
[2018-11-13] MEDS: LISINOPRIL 10 MG TAB PO SCH (09:31)
[2018-11-13] MEDS: SENNOSIDES/DOCUSATE SODIUM TAB PO SCH (09:32)
[2018-11-13] MEDS: POLYETHYLENE GLYCOL 3350 17 GM PKT PO SCH (09:32)
--- NOTE | 2018-11-13 09:36 | ASMTLACE ---
LACE Length of stay for Answers: 4-6 days current admission Acuity / Level of Answers: Yes Care: Did the patient have an inpatient admission? Comorbidities - select Answers: Diabetes (uncontrolled or all that apply controlled) Other Notes: HTN; HLD; BPH # of Emergency department Answers: 1-2 visits in the last 6 months Score: 10 Date Signed: 11/13/2018 09:35 AM Electronically Signed By:Renata Giron RN
--- NOTE | 2018-11-13 09:37 | GDS ---
[f rep st] DISCHARGE SUMMARY DISCHARGE DIAGNOSES: 1. Mechanical fall. 2. Bilateral quadriceps tendon ruptures, status post repair and bilateral ankle sprains. 3. Diabetes. 4. Leukocytosis. 5. Pain due to the tendon ruptures. 6. Constipation. 7. History of enlarged prostate. 8. Urinary retention. CONSULTATION: Dr. Eddi Saldaña. HISTORY AND HOSPITAL COURSE: Briefly, this patient is a very delightful 68-year-old male with a hist ory of well-controlled diabetes, hypertension, and BPH. He had a mechanical fall. He was working on a step stool and was too close to the wall. He bumped his belly into it and fell backwards. He had a hard time getting up. He called 911 and came in. He had some stitches to the back of his head. He was all set to go home, but when he was ambulating with crutches, he fell again and subsequently w as readmitted. He had cervical spine studies done that were negative. He was admitted and seen by Ashok Saldaña, and on November 09, he had a bilateral quadriceps tendon repair performed as well as an jossy cuation of a hematoma and debridement. The patient has done well during his hospital stay. The plan is for him to go to rehabilitation for strengthening. HOSPITAL COURSE PER PROBLEM: 1. Gait instability with falls. He will be getting physical therapy and occupational therapy. 2. Bilateral quadriceps tendon ruptures, status post repair, as well as bilateral ankle sprains. He is status post repair on November 09. He has a small left ankle avulsion fracture. 3. Diabetes. His metformin was held. This has been resumed today. He has been treated with slidin g scale. I will ask the rehab facility to monitor his glucoses. 4. Leukocytosis, better. 5. Pain. Initially, he had significant pain after surgery. He used a SUPERVISOR CLAIMS. His pain is well manage d. 6. Constipation, resolved. 7. History of enlarged prostate. He is on Flomax twice daily. 8. Urinary retention. This is likely due to his immobility. A trial of the Lorenzo being removed was done. He retained over a liter and a half of urine. We will leave the Lorenzo in for now. 9. Deep venous thrombosis prophylaxis on Xarelto. DISCHARGE CONDITION: Stable. Blood pressure is 133/66, heart rate of 80, respiratory rate of 17. O 2 sats on CPAP for 94%. Temperature 36.8 Celsius. MEDICATIONS AT DISCHARGE: Please see the EMR. DISCHARGE INSTRUCTIONS: Written out in detail: 1. No weightbearing to either of his legs. He needs to maintain the braces and splints at all times . 2. Xarelto 10 mg for a total of 21 days postop. 3. Follow up with Dr. Saldaña in 7-10 days. 4. Lisinopril is a new medication added during his hospital stay. Greater than 30 minutes discharging and coordinating the patient's care. /[id number]/MODL
--- NOTE | 2018-11-13 11:18 | ASMTDCNOTE ---
Case Management Discharge Discharge Order Complete? Answers: Yes Patient to Obtain Answers: Other Notes: [facility] Medications Transportation Arranged Answers: [facility] will Pick (Date 11/13/2018 12:00 PM & Time) Case Management Transport Answers: Yes Form Complete Faxed Final Orders Answers: Yes Agency/Facility Transfer Answers: Yes Report Printed & Faxed to Receiving Agency Family Notified Answers: Yes Discharge Comments Notes: D/w IMMIGRATION CONSULTANT, final orders faxed. Bertha at [facility] notified, discussed transportation with pt and . Pt needs stretcher transport but cannot guarantee Medicare will cover cost. Pt and do have a secondary (part B) which will likely pay 80%. PT and agree to bill to Medicare. Date Signed: 11/13/2018 11:17 AM Electronically Signed By:Renata Giron RN
--- NOTE | 2018-11-13 18:07 | ASDISCHSUM ---
Discharge Information Plan Status:SNF Medically Cleared to Leave: Discharge Date:11/13/2018 12:09 PM D/C Disposition:Snf Facility ADT D/C Disposition:Other Rehab, Not [place] Projected Discharge Date:11/13/2018 11:00 AM Transportation at D/C: Discharge Delay Reason: Follow-Up Date:11/13/2018 11:00 AM Discharge Slot: Final Diagnosis: Placement Information Referral Type:*Long-Term/SNF Referral ID:[id number] Provider Name:[facility] Address 1:[address] [place] [address] Address 2: City:[place] Selection Factors: State:[place] Patient Contact Information Contact Name:DAFNEDONTAEKALYN Relationship:Other Address:[address] [place] [address] Work Phone: City:[place] Alternate Phone: State/Zip Code:[place] [address] Email: Financial Information Financial Class:Medicare Primary Plan Desc:MEDICARE INPATIENT Primary Plan Number:[id number] Secondary Plan Desc:ONEL CROOK INDEMGRISELDA Secondary Plan Number:[id number] Assessment Information LACE LACE Length of stay for Answers: 4-6 days current admission Acuity / Level of Answers: Yes Care: Did the patient have an inpatient admission? Comorbidities - select Answers: Diabetes (uncontrolled or all that apply controlled) Other Notes: HTN; HLD; BPH # of Emergency department Answers: 1-2 visits in the last 6 months Score: 10 Date Signed: 11/13/2018 09:35 AM Electronically Signed By:Rneata Giron RN [facility] CM Progress Note CM Note CM Note Notes: Pt is a 68 y/o man admitted for a mechanical fall and hit his left side of his head. Therapies have been ordered and awaiting recommendations. Needs are TBD at this time. CM to follow. Plan: TBD Date Signed: 11/09/2018 04:15 PM Electronically Signed By:JULIAN Arias [facility] CM Progress Note CM Note CM Note Notes: Pt Chart reviewed. NWB lower extremities. ST & OT recommend IP Rehab and awaiting PT's recommendation. Contacted [facility] to assess. CM available for needs. PLAN: SNF/IP Rehab Date Signed: 11/10/2018 02:04 PM Electronically Signed By:Paris Maxwell [facility] CM Progress Note CM Note CM Note Notes: Met with pt and , inpt rehab declined pt d/t inability to be weight bearing. D[facility] given list and would like referrals sent to [facility], [facility], [facility], and [facility]. Likely dc Friday, to tour facilities and let CM know. DC Plan: SNF Date Signed: 11/12/2018 11:07 AM Electronically Signed By:Renata Giron RN Case Management Discharge Plan Note Case Management Discharge Discharge Order Complete? Answers: Yes Patient to Obtain Answers: Other Notes: [facility] Medications Transportation Arranged Answers: [facility] will Pick (Date 11/13/2018 12:00 PM & Time) Case Management Transport Answers: Yes Form Complete Faxed Final Orders Answers: Yes Agency/Facility Transfer Answers: Yes Report Printed & Faxed to Receiving Agency Family Notified Answers: Yes Discharge Comments Notes: D/w DELIVERY ENGINEER, final orders faxed. Bertha at [facility] notified, discussed transportation with pt and . Pt needs stretcher transport but cannot guarantee Medicare will cover cost. Pt and do have a secondary (part B) which will likely pay 80%. PT and agree to bill to Medicare. Date Signed: 11/13/2018 11:17 AM Electronically Signed By:Renata Giron RN Intervention Information Intervention Type:*ANTONIO-Signed Date of Service:11/09/2018 12:20 PM Patient Type:Observation Staff Member:Isabelle Rodgers Hours: Discipline: Severity: Comment: Intervention Type:*MEENA-Signed Date of Service:11/13/2018 10:54 AM Patient Type:Inpatient Staff Member:Isabelle Rodgers Hours: Discipline: Severity: Comment:
== END 2018-11-13 12:09 | DRG 501 ==
LOC: EDUNIT# → F3N 20:45 → OBSVTOIN 11-09 14:11 → F3N 11-12 15:23
PROVIDERS: ADMIT Internal Medicine; ATTEND Internal Medicine
PROC: 0HQ0XZZ Repair Scalp Skin, External Approach (ICD-10-PCS; 2018-11-09)
PROC: 0K9R0ZZ Drainage of Left Upper Leg Muscle, Open Approach (ICD-10-PCS; principal; 2018-11-09 13:45)
PROC: 0LQL0ZZ Repair Right Upper Leg Tendon, Open Approach (ICD-10-PCS; principal; 2018-11-09 13:45)
PROC: 0K9Q0ZZ Drainage of Right Upper Leg Muscle, Open Approach (ICD-10-PCS; principal; 2018-11-09 13:45)
PROC: 0LQM0ZZ Repair Left Upper Leg Tendon, Open Approach (ICD-10-PCS; principal; 2018-11-09 13:45)
DX: S76.111A Strain of right quadriceps muscle, fascia and tendon, initial encounter (principal); S76.112A Strain of left quadriceps muscle, fascia and tendon, initial encounter; W18.39XA Other fall on same level, initial encounter; Y92.238 Other place in hospital as the place of occurrence of the external cause; S92.102A Unspecified fracture of left talus, initial encounter for closed fracture; S01.01XA Laceration without foreign body of scalp, initial encounter; S82.002A Unspecified fracture of left patella, initial encounter for closed fracture; W11.XXXA Fall on and from ladder, initial encounter; Y92.009 Unspecified place in unspecified non-institutional (private) residence as the place of occurrence of the external cause; R00.0 Tachycardia, unspecified; D72.829 Elevated white blood cell count, unspecified; K59.00 Constipation, unspecified; E11.9 Type 2 diabetes mellitus without complications; N40.1 Benign prostatic hyperplasia with lower urinary tract symptoms; R33.8 Other retention of urine; I10 Essential (primary) hypertension; R26.89 Other abnormalities of gait and mobility; E78.5 Hyperlipidemia, unspecified; Z91.81 History of falling
CPT/HCPCS: 92507-GN; 92523-GN; 96374; 97162-GP; 97165-GO; 97530-GO; 97530-GP; 97535-GO; C1713; G0378; J0690; J1170; J1815; J1885; J2001; J2405; J2704; J3010; L1832

== ENCOUNTER 2018-11-15 19:25 | Inpatient (IN) | payer OTHER ==
[2018-11-15] MEDS ORDERED: HYDROmorphONE/DILAUDID 2 MG/ML INJ IVP ONE (19:38)
[2018-11-15] MEDS ORDERED: IOPAMIDOL (ISOVUE-300) 100 ML BTL ONE (19:43)
[2018-11-15 21:10] LABS: PLATELET COUNT 305 10^3/uL (150-400)
[2018-11-15] MEDS ORDERED: CETACAINE SPRAY 20 GM TP ONE (21:39)
--- NOTE | 2018-11-15 22:17 | EDPHY ---
H & P Time Seen by Provider: 11/15/18 19:34 Smoking Status: Never smoked Constitutional: Initial Vital Signs Temperature (C) 37.2 C 11/15/18 19:29 Heart Rate 106 H 11/15/18 19:29 Respiratory Rate 18 11/15/18 19:29 Blood Pressure 182/102 H 11/15/18 19:29 O2 Sat (%) 98 11/15/18 19:29 O2 Delivery Mode Room Air O2 (L/minute) 3 Allergies/Adverse Reactions: No Known Allergies Allergy (Verified 11/15/18 19:29) Home Medications: Medication Instructions Recorded Finasteride [Proscar 5 MG (*)] 5 mg PO DAILY 11/08/18 Metformin HCl [Metformin 1000 mg] 1,000 mg PO BID 11/08/18 Tamsulosin HCl 0.8 mg PO BID 11/08/18 glipiZIDE [Glipizide ER] 5 mg PO DAILY 11/08/18 Certolizumab Pegol [Cimzia] 400 mg SQ Q30D 11/10/18 Acetaminophen [Tylenol ES 500 mg 1,000 mg PO Q8 tab 11/13/18 (*)] Lisinopril [Zestril 10 mg (*)] 10 mg PO DAILY tab 11/13/18 Methocarbamol [Robaxin 750 mg (*)] 750 mg PO TID PRN tab 11/13/18 Polyethylene Glycol 3350 [Miralax 17 gm PO BID pkt 11/13/18 17 gm (*)] Rivaroxaban [Xarelto 10mg (*)] 10 mg PO DAILY tab 11/13/18 Sennosides/Docusate Sodium 1 - 2 tab PO BID tab 11/13/18 [Senokot-S] oxyCODONE IR [Oxycodone Ir (*)] 5 - 10 mg PO Q3HRS PRN tab 11/13/18 MDM/Departure - MDM Imaging Results: Imaging Impressions Abdomen CT 11/15/18 19:39 Impression: 1. Massive fluid-filled distention of the stomach, with diffuse small bowel distention and fluid-filled distention of the cecum. Findings are most compatible with ileus although small bowel obstruction is not excluded given the degree of small bowel distention. 2. Trace peritoneal ascites right lower quadrant. 3. Bibasilar atelectasis with small pleural effusions bilaterally. Results called to Juan Antonio Linder PA-C, at 9:20 PM. Medications Given: Discontinued Medications Hydromorphone HCl (Dilaudid) 0.5 mg IVP EDNOW ONE Stop: 11/15/18 19:39 Last Admin: 11/15/18 20:06 Dose: 0.5 mg - Depart
--- NOTE | 2018-11-15 22:53 | EDPHY ---
H & P Stated Complaint: sent from rehab for possible SBO Time Seen by Provider: 11/15/18 19:34 HPI/ROS: Chief complaint: Abdominal distention, possible bowel obstruction History of present illness: This is a 68-year-old male with a complicated recent medical history with lower extremity traumatic injuries (please see hospital notes from 11/08/18-11/13/18) who is sent from rehab for abdominal distention and possible bowel obstruction. Since being discharged 2 days ago he has had increasing abdominal discomfort and distention. Persistent hiccups. Nausea without vomiting. Decreased bowel movement. No fever. He is still producing urine. Review of systems: 10 point review of systems was obtained and other than described above was negative. - Personal History Current Tetanus Diphtheria and Acellular Pertussis (TDAP): No - Medical/Surgical History Hx Asthma: No Hx Chronic Respiratory Disease: No Hx Diabetes: Yes Hx Cardiac Disease: No Hx Renal Disease: No Hx Cirrhosis: No Hx Alcoholism: No Hx HIV/AIDS: No Hx Splenectomy or Spleen Trauma: No Other PMH: DM, prostititis, psoriasis,BPH,HTN, bilateral ruptured quad's, - Social History Smoking Status: Never smoked - Physical Exam Exam: General Appearance: Alert, unwell but nontoxic appearing. Eyes: Pupils equal and round no pallor or injection. ENT, Mouth: Mucous membranes moist. Respiratory: There are no retractions, lungs are clear to auscultation. Cardiovascular: Regular rate and rhythm. Gastrointestinal: Bowel sounds are present. The abdomen is profoundly distended and taut. Diffuse tenderness. Neurological: Alert and oriented. Skin: Warm and dry, no rashes. Musculoskeletal: Neck is supple non tender. Extremities are symmetrical, full range of motion. Psychiatric: Patient is oriented X 3, there is no agitation. Constitutional: Initial Vital Signs Temperature (C) 37.2 C 11/15/18 19:29 Heart Rate 106 H 11/15/18 19:29 Respiratory Rate 18 11/15/18 19:29 Blood Pressure 182/102 H 11/15/18 19:29 O2 Sat (%) 98 11/15/18 19:29 O2 Delivery Mode Room Air O2 (L/minute) 3 Allergies/Adverse Reactions: No Known Allergies Allergy (Verified 11/15/18 19:29) Home Medications: Medication Instructions Recorded Finasteride [Proscar 5 MG (*)] 5 mg PO DAILY 11/08/18 Metformin HCl [Metformin 1000 mg] 1,000 mg PO BID 11/08/18 Tamsulosin HCl 0.8 mg PO BID 11/08/18 glipiZIDE [Glipizide ER] 5 mg PO DAILY 11/08/18 Certolizumab Pegol [Cimzia] 400 mg SQ Q30D 11/10/18 Acetaminophen [Tylenol ES 500 mg 1,000 mg PO Q8 tab 11/13/18 (*)] Lisinopril [Zestril 10 mg (*)] 10 mg PO DAILY tab 11/13/18 Methocarbamol [Robaxin 750 mg (*)] 750 mg PO TID PRN tab 11/13/18 Polyethylene Glycol 3350 [Miralax 17 gm PO BID pkt 11/13/18 17 gm (*)] Rivaroxaban [Xarelto 10mg (*)] 10 mg PO DAILY tab 11/13/18 Sennosides/Docusate Sodium 1 - 2 tab PO BID tab 11/13/18 [Senokot-S] oxyCODONE IR [Oxycodone Ir (*)] 5 - 10 mg PO Q3HRS PRN tab 11/13/18 Medical Decision Making - Diagnostics Imaging Results: Imaging Impressions Abdomen CT 11/15/18 19:39 Impression: 1. Massive fluid-filled distention of the stomach, with diffuse small bowel distention and fluid-filled distention of the cecum. Findings are most compatible with ileus although small bowel obstruction is not excluded given the degree of small bowel distention. 2. Trace peritoneal ascites right lower quadrant. 3. Bibasilar atelectasis with small pleural effusions bilaterally. Results called to Juan Antonio Linder PA-C, at 9:20 PM. Imaging: Discussed imaging studies w/ furnace keeper Radiologist Procedures: NG-tube was placed by nursing staff with good return of fluid ED Course/Re-evaluation: Patient is discussed with my secondary supervising physician Dr. Brian Fajardo. Patient presents with increasing abdominal discomfort and distention. CT scan is concerning for a small bowel obstruction. An NG tube is placed. Patient is admitted to the hospitalist service under the care of Dr. All Pedro. On-call surgery, Dr. Santo Marquez has been consulted. The plan has been discussed with the patient voiced understanding and agreement with it. Differential Diagnosis: Included but not limited to bowel obstruction, ileus, constipation, fecal impaction - Data Points Laboratory Results: Laboratory Results 11/15/18 19:57 11/15/18 19:57 11/15/18 11/15/18 19:57 19:57 WBC 14.67 10^3/uL H 10^3/uL (3.80-9.50) RBC 3.90 10^6/uL L 10^6/uL (4.40-6.38) Hgb 12.1 g/dL L g/dL (13.7-17.5) Hct 35.7 % L % (40.0-51.0) MCV 91.5 fL fL (81.5-99.8) MCH 31.0 pg pg (27.9-34.1) MCHC 33.9 g/dL g/dL (32.4-36.7) RDW 12.4 % % (11.5-15.2) Plt Count 305 10^3/uL 10^3/uL (150-400) MPV 10.7 fL fL (8.7-11.7) Neut % (Auto) Not Reported Lymph % (Auto) Not Reported Wilkin % (Auto) Not Reported Eos % (Auto) Not Reported Baso % (Auto) Not Reported Nucleat RBC Rel Count Not Reported Absolute Neuts (auto) Not Reported Absolute Lymphs (auto) Not Reported Absolute Monos (auto) Not Reported Absolute Eos (auto) Not Reported Absolute Basos (auto) Not Reported Absolute Nucleated RBC Not Reported Immature Gran % Not Reported Seg Neutrophils % 86.7 % % Band Neutrophils % 0.0 % % Lymphocytes % 7.2 % % Monocytes % 5.1 % % Eosinophils % 1.0 % % Basophils % 0.0 % % Metamyelocytes % 0.0 % % Myelocytes % 0.0 % % Promyelocytes % 0.0 % % Blast Cells % 0.0 % % Immature Gran # Not Reported Absolute Seg Neuts 12.72 10^3/uL H 10^3/uL (1.70-6.50) Absolute Band Neuts 0.00 10^3/uL 10^3/uL (0.00-0.70) Absolute Lymphocytes 1.06 10^3/uL 10^3/uL (1.00-3.00) Absolute Monocytes 0.75 10^3/uL 10^3/uL (0.30-0.80) Absolute Eosinophils 0.15 10^3/uL 10^3/uL (0.03-0.40) Absolute Basophils 0.00 10^3/uL L 10^3/uL (0.02-0.10) Absolute Metamyelocyte 0.00 10^3/mL 10^3/mL (0.00-0.00) Absolute Myelocytes 0.00 10^3/mL 10^3/mL (0.00-0.00) Absolute Promyelocytes 0.00 10^3/uL 10^3/uL (0.00-0.00) Absolute Plasma Cells 0.00 10^3/uL 10^3/uL (0.00-0.00) Nucleated RBCs 0 /100 WBC /100 WBC (0-0) RBC/WBC/PLT Morphology NORMAL (NORMAL) Absolute Blast Cells 0.00 10^3/uL 10^3/uL (0.00-0.00) Plasma Cells % 0.0 % % Platelet Estimate ADEQUATE (ADEQ) Sodium 133 mEq/L L mEq/L (135-145) Potassium 4.7 mEq/L mEq/L (3.5-5.2) Chloride 97 mEq/L mEq/L (97-110) Carbon Dioxide 28 mEq/l mEq/l (22-31) Anion Gap 8 mEq/L mEq/L (6-14) BUN 56 mg/dL H mg/dL (7-23) Creatinine 0.9 mg/dL mg/dL (0.7-1.3) Estimated GFR > 60 Glucose 221 mg/dL H mg/dL (70-100) Calcium 9.3 mg/dL mg/dL (8.5-10.4) Total Bilirubin 0.8 mg/dL mg/dL (0.1-1.4) Conjugated Bilirubin 0.5 mg/dL mg/dL (0.0-0.5) Unconjugated Bilirubin 0.3 mg/dL mg/dL (0.0-1.1) AST 24 IU/L IU/L (17-59) ALT 31 IU/L IU/L (21-72) Alkaline Phosphatase 49 IU/L IU/L (38-126) Total Protein 5.9 g/dL L g/dL (6.3-8.2) Albumin 3.1 g/dL L g/dL (3.5-5.0) Lipase 59 IU/L IU/L (23-300) Medications Given: Discontinued Medications Hydromorphone HCl (Dilaudid) 0.5 mg IVP EDNOW ONE Stop: 11/15/18 19:39 Last Admin: 11/15/18 20:06 Dose: 0.5 mg Departure - Departure Disposition: [facility] Inpatient Acute Clinical Impression: SBO (small bowel obstruction) Condition: Fair
[2018-11-15] MEDS ORDERED: ACETAMINOPHEN 325 MG TAB PO PRN (23:41)
[2018-11-15] MEDS ORDERED: ONDANSETRON 4 MG/2 ML VIAL IVP PRN (23:41)
[2018-11-15] MEDS ORDERED: LORazepam 2 MG/ML INJ IVP PRN (23:41)
[2018-11-15] MEDS ORDERED: HYDROmorphONE/DILAUDID 1 MG/ML INJ IVP PRN (23:41)
[2018-11-15] MEDS ORDERED: PROMETHAZINE HCL 25 MG/ML INJ IVP PRN (23:41)
[2018-11-15] MEDS ORDERED: ONDANSETRON DISINTEGRATING 4 MG TAB PO PRN (23:41)
[2018-11-15] MEDS ORDERED: DIAZEPAM 5 MG/ML 1 ML SYR IVP PRN (23:45)
[2018-11-15] MEDS ORDERED: ENOXAPARIN 40 MG/0.4 ML SYR SC ONE (23:45)
[2018-11-15] MEDS ORDERED: D50W 25 GM/50 ML SYR IVP PRN (23:46)
[2018-11-15] MEDS ORDERED: ENALAPRILAT DIHYDRATE 1.25 MG/ML VIAL IVP PRN (23:46)
--- NOTE | 2018-11-15 23:47 | PDGENHP ---
History and Physical - Chief Complaint abd pain/swelling - History of Present Illness 68 yo M with recent bilateral ankle sprains complicated by bilateral quadricep tendon rupture sp repair and recent hospital discharge to SNF for rehab. Patient is completely non weight bearing currently and has been requiring pain medications to manage his leg pain. He had been doing ok initially after transfer to SNF but notes that 2 nights ago he began having intractable hiccups. He did not think much of this but around the same time he noted that he was really unable to eat and states that over 2 days he has had 2 cups of yogurt only. He has not had vomiting but was nauseated and furthermore just did not feel like eating. He has not had a BM in several days and has not been passing gas. Today this was all getting worse and his abdomen was becoming much more tense and distended and so he came to the ER. Here a CT scan showed massively distended and fluid filled stomach as well as small bowel and cecal distention. History Information - Allergies/Home Medication List Allergies/Adverse Reactions: No Known Allergies Allergy (Verified 11/15/18 19:29) Home Medications: Finasteride [Proscar 5 MG (*)] 5 mg PO DAILY 11/08/18 [Last Taken 11/15/18] Metformin HCl [Metformin 1000 mg] 1,000 mg PO BID 11/08/18 [Last Taken 11/15/18] Tamsulosin HCl 0.8 mg PO BID 11/08/18 [Last Taken 11/15/18] glipiZIDE [Glipizide ER] 5 mg PO DAILY 11/08/18 [Last Taken 11/15/18] Certolizumab Pegol [Cimzia] 400 mg SQ Q30D 11/10/18 [Last Taken 10/27/18] I have personally reviewed and updated: family history, medical history, social history, surgical history - Past Medical History diabetes type 2, hypertension Additional medical history: BPH. recent bilateral quad tendon ruptures and bilateral ankle sprains with small left ankle avulsion fracture - Surgical History Additional surgical history: quad tendon repair - Family History Positive for: non-pertinent - Social History Smoking Status: Never smoked Alcohol Use: None Drug Use: None Additional social history: , currently in snf Review of Systems Review of Systems: ROS: 10pt was reviewed & negative except for what was stated in HPI & below Physical Exam Physical Exam: Temp Pulse Resp BP Pulse Ox 37.1 C 105 H 20 158/79 H 94 11/15/18 22:31 11/15/18 22:31 11/15/18 22:31 11/15/18 22:31 11/15/18 22:31 Constitutional: appears nourished, uncomfortable Eyes: PERRL, anicteric sclera Ears, Nose, Mouth, Throat: moist mucous membranes, hearing normal Cardiovascular: regular rate and rhythym, no murmur, rub, or gallop, No edema Respiratory: no respiratory distress, reduced air movement Gastrointestinal: tenderness, distension, No normoactive bowel sounds Genitourinary: no bladder tenderness Skin: warm, normal color Musculoskeletal: no muscle tenderness Neurologic: AAOx3 Psychiatric: interacting appropriately, not anxious, not encephalopathic Lab Data & Imaging Review 11/15/18 19:57 11/15/18 19:57 WBC 14.67 10^3/uL (3.80-9.50) H 11/15/18 19:57 RBC 3.90 10^6/uL (4.40-6.38) L 11/15/18 19:57 Hgb 12.1 g/dL (13.7-17.5) L 11/15/18 19:57 Hct 35.7 % (40.0-51.0) L 11/15/18 19:57 MCV 91.5 fL (81.5-99.8) 11/15/18 19:57 MCH 31.0 pg (27.9-34.1) 11/15/18 19:57 MCHC 33.9 g/dL (32.4-36.7) 11/15/18 19:57 RDW 12.4 % (11.5-15.2) 11/15/18 19:57 Plt Count 305 10^3/uL (150-400) 11/15/18 19:57 MPV 10.7 fL (8.7-11.7) 11/15/18 19:57 Neut % (Auto) Not Reported 11/15/18 19:57 Lymph % (Auto) Not Reported 11/15/18 19:57 [place] % (Auto) Not Reported 11/15/18 19:57 Eos % (Auto) Not Reported 11/15/18 19:57 Baso % (Auto) Not Reported 11/15/18 19:57 Nucleat RBC Rel Count Not Reported 11/15/18 19:57 Absolute Neuts (auto) Not Reported 11/15/18 19:57 Absolute Lymphs (auto) Not Reported 11/15/18 19:57 Absolute Monos (auto) Not Reported 11/15/18 19:57 Absolute Eos (auto) Not Reported 11/15/18 19:57 Absolute Basos (auto) Not Reported 11/15/18 19:57 Absolute Nucleated RBC Not Reported 11/15/18 19:57 Immature Gran % Not Reported 11/15/18 19:57 Seg Neutrophils % 86.7 % 11/15/18 19:57 Band Neutrophils % 0.0 % 11/15/18 19:57 Lymphocytes % 7.2 % 11/15/18 19:57 Monocytes % 5.1 % 11/15/18 19:57 Eosinophils % 1.0 % 11/15/18 19:57 Basophils % 0.0 % 11/15/18 19:57 Metamyelocytes % 0.0 % 11/15/18 19:57 Myelocytes % 0.0 % 11/15/18 19:57 Promyelocytes % 0.0 % 11/15/18 19:57 Blast Cells % 0.0 % 11/15/18 19:57 Immature Gran # Not Reported 11/15/18 19:57 Absolute Seg Neuts 12.72 10^3/uL (1.70-6.50) H 11/15/18 19:57 Absolute Band Neuts 0.00 10^3/uL (0.00-0.70) 11/15/18 19:57 Absolute Lymphocytes 1.06 10^3/uL (1.00-3.00) 11/15/18 19:57 Absolute Monocytes 0.75 10^3/uL (0.30-0.80) 11/15/18 19:57 Absolute Eosinophils 0.15 10^3/uL (0.03-0.40) 11/15/18 19:57 Absolute Basophils 0.00 10^3/uL (0.02-0.10) L 11/15/18 19:57 Absolute Metamyelocyte 0.00 10^3/mL (0.00-0.00) 11/15/18 19:57 Absolute Myelocytes 0.00 10^3/mL (0.00-0.00) 11/15/18 19:57 Absolute Promyelocytes 0.00 10^3/uL (0.00-0.00) 11/15/18 19:57 Absolute Plasma Cells 0.00 10^3/uL (0.00-0.00) 11/15/18 19:57 Nucleated RBCs 0 /100 WBC (0-0) 11/15/18 19:57 RBC/WBC/PLT Morphology NORMAL (NORMAL) 11/15/18 19:57 Absolute Blast Cells 0.00 10^3/uL (0.00-0.00) 11/15/18 19:57 Plasma Cells % 0.0 % 11/15/18 19:57 Platelet Estimate ADEQUATE (ADEQ) 11/15/18 19:57 Sodium 133 mEq/L (135-145) L 11/15/18 19:57 Potassium 4.7 mEq/L (3.5-5.2) 11/15/18 19:57 Chloride 97 mEq/L (97-110) 11/15/18 19:57 Carbon Dioxide 28 mEq/l (22-31) 11/15/18 19:57 Anion Gap 8 mEq/L (6-14) 11/15/18 19:57 BUN 56 mg/dL (7-23) H 11/15/18 19:57 Creatinine 0.9 mg/dL (0.7-1.3) 11/15/18 19:57 Estimated GFR > 60 11/15/18 19:57 Glucose 221 mg/dL (70-100) H 11/15/18 19:57 Calcium 9.3 mg/dL (8.5-10.4) 11/15/18 19:57 Total Bilirubin 0.8 mg/dL (0.1-1.4) 11/15/18 19:57 Conjugated Bilirubin 0.5 mg/dL (0.0-0.5) 11/15/18 19:57 Unconjugated Bilirubin 0.3 mg/dL (0.0-1.1) 11/15/18 19:57 AST 24 IU/L (17-59) 11/15/18 19:57 ALT 31 IU/L (21-72) 11/15/18 19:57 Alkaline Phosphatase 49 IU/L (38-126) 11/15/18 19:57 Total Protein 5.9 g/dL (6.3-8.2) L 11/15/18 19:57 Albumin 3.1 g/dL (3.5-5.0) L 11/15/18 19:57 Lipase 59 IU/L (23-300) 11/15/18 19:57 Visualized and Interpreted imaging results: Yes Interpretation: abd CT: massively fluid and air filled stomach, distended small bowel and cecum most c/w ileus Assessment & Plan Assessment: SBO (small bowel obstruction) (Acute) 68 yo M with recent quad tendon ruptures currently NWB presenting with massive abdominal distension due to ileus vs sbo # ileus vs sbo: massively distended stomach and small bowel, NGT placed in ER and 750ml fluid removed immediately, will keep NGT to suction for decompression. Appreciate surgery evaluation, they note that relistor could be considered in am if sxs not improving, another option would be for therapeutic colonoscopy. Challenging situation given he will remain fully bed bound and requiring pain medications. IVF, NPO, IV antiemetics and pain medications. # bilateral quad tendon rupture: patient remains non weight bearing and therefore bed bound, followed by [facility] of ortho, will likely return to snf after dc # DM2: will start SSI and monitor, holding metformin and glipizide given above # HTN: BP only mildly elevated since arrival, prn IV enalapril for now given NPO # leukocytosis: likely stress response, trending # anemia: relatively stable since post operative state, continue to trend # BPH: holding his oral meds for now # ppx: has been on apixaban as an OP, will start lovenox for now while NPO # IP status, patient will require > 48 hours stay for eval/mgmt of above Patient new to my care. Old records reviewed and summarized as above. CAre plan reviewed with ER doctor and patients friend present at bedside
[2018-11-16] MEDS ORDERED: ENOXAPARIN 40 MG/0.4 ML SYR SC ONE (00:45)
[2018-11-16] MEDS: NS 1,000 ML IV SCH ×2 (00:46→20:13)
[2018-11-16 05:09] LABS: PLATELET COUNT 304 10^3/uL (150-400)
[2018-11-16] MEDS: INSULIN LISPRO 100 UNIT/ML SC SCH ×2 (07:57→12:50)
--- NOTE | 2018-11-16 08:39 | SOAPPROG ---
SOAP Progress Note Assessment/Plan: Assessment/Plan: 68 Y M recent B ankle sprains complicated by quadriceps tendon rupture admitted with likely ileus. Seen c Dr. Marquez. Continue conservative management c NG decompression, bowel rest, minimize narcs , support care. Unfortunately he is unable to walk to assist in resolution of ileus. Will get new AXR films this am. S: not passing much gas O: alert, nad no wob abd distended, +BS, although not vigorous sounds 11/16/18 08:36 Objective: Vital Signs Temp Pulse Resp BP Pulse Ox 37.2 C 99 20 130/68 H 97 11/16/18 07:52 11/16/18 07:52 11/16/18 07:52 11/16/18 07:52 11/16/18 07:52 Laboratory Results 11/16/18 04:24 11/16/18 04:24 11/15/18 11/16/18 11/17/18 05:59 05:59 05:59 Intake Total 1800 Output Total 2700 Balance -900 ICD10 Worksheet Patient Problems: Problems Problem Status Onset SBO (small bowel obstruction) Acute Closed left ankle fracture Acute Head injury Acute Injury, knee Acute Scalp laceration Acute
--- NOTE | 2018-11-16 11:30 | PDMN ---
Medical Necessity Medical necessity: Pt meets IP criteria as of 11/16/2018 per and MCG M-210 ( Intestinal Obstruction); est los > 2 mn for ongoing tx and management of ileus vs SBO; requiring NGT to suction, surgical consultation, IVF, NPO status, IV anti-emetics, and IV dilaudid. Hx recent bilateral quad tendon rupture and ankle fractures and is NWB, DM II, HTN, leukocytosis, anemia, and BPH.
[2018-11-16] MEDS: ENOXAPARIN 120 MG/0.8 ML SYR SC SCH ×2 (13:03→20:13)
--- NOTE | 2018-11-16 13:52 | ASMTCMCOM ---
CM Note CM Note Notes: Patient was inpatient with recent bilateral ankle sprains complicated by bilateral quadriceps tendon rupture and recent hospital discharge to SNF for rehab. Patient is completely non weight bearing currently and has been requiring pain medications to manage his leg pain. CM spoke to patient. He came from [facility]. He would like to return to [facility] when he is discharged. PT/OT have been ordered but have not seen him yet. CM put in referral to [facility]. CM to follow. DC Plan: [facility] pending acceptance Date Signed: 11/16/2018 11:02 AM Electronically Signed By:Gillian Morales
--- NOTE | 2018-11-16 16:53 | HOSPPROG ---
Hospitalist Progress Note Assessment/Plan: Subjective Follow-up on ileus versus small-bowel obstruction. Patient states he is feeling better with bowel decompression. He does state that he passed gas on 2 occasions today but states a small amount. We reviewed his recent trauma of bilateral quadriceps tendon rupture. I did put a call in to his Orthopedic surgery's office today. I did leave my name and number and request a call back so I can review the timing of suture and staple removal. Objective Vitals as detailed below Exam General-awake alert conversant no acute distress, NG tube in place Heart-regular rate and rhythm no murmurs Lungs-Clear to auscultation with normal respiratory effort Abdomen-distended, high-pitched bowel sounds -Lorenzo catheter in place Extremities-no significant pitting edema or calf pain with palpation Skin-no concerning skin rashes noted Labs as detailed below Assessment and plan Ileus versus small-bowel obstruction-continue supportive IV fluids and NG tube suction. I appreciate surgery's assistance on the case as well. Bilateral quadriceps tendon rupture-patient is status post surgery. Continue bracing nonweightbearing. Leukocytosis-suspect reactive. Monitor for any fevers. Anemia-trend for any decline. Acute hypoxic respiratory failure-likely secondary to atelectasis from significant abdominal distension. Wean oxygen as able. Hypertension-continue outpatient antihypertensives. Diabetes mellitus type 2-will obtain A1c. DVT prophylaxis-patient had been on Xarelto 10 mg daily as outpatient. He is currently on therapeutic dosing of Lovenox. Will continue with the therapeutic dosing for now considering he is at high risk considering the immobility. Plan on resuming Xarelto once able to tolerate a diet. Disposition-anticipate returning to rehab once cleared from medical and surgical standpoint. Objective: Vital Signs Temp Pulse Resp BP Pulse Ox 37.2 C 94 13 127/65 H 98 11/16/18 15:13 11/16/18 15:13 11/16/18 15:13 11/16/18 15:13 11/16/18 15:13 Laboratory Results 11/16/18 04:24 11/16/18 04:24 11/15/18 11/16/18 11/17/18 05:59 05:59 05:59 Intake Total 1800 Output Total 2700 1000 Balance -900 -1000 ICD10 Worksheet Patient Problems: Problems Problem Status Onset SBO (small bowel obstruction) Acute Closed left ankle fracture Acute Head injury Acute Injury, knee Acute Scalp laceration Acute
[2018-11-17] MEDS: NS 1,000 ML IV SCH ×3 (03:01→22:39)
[2018-11-17 05:27] LABS: PLATELET COUNT 260 10^3/uL (150-400)
[2018-11-17] MEDS: ENOXAPARIN 120 MG/0.8 ML SYR SC SCH (07:38)
--- NOTE | 2018-11-17 12:36 | SOAPPROG ---
SOAP Progress Note Assessment/Plan: Assessment/Plan: 68 Y M recent B ankle sprains complicated by quadriceps tendon rupture admitted with likely ileus. Seen c Dr. Marquez. Seems to be slowly improving. AXR with gas throughout both small and large bowel. Continue conservative management-- bowel rest, minimize narcs, support care. NG clamping trial today/ Unfortunately he is unable to walk to assist in resolution of ileus. S: passing lots of gas, "18 times," he says O: alert, nad no wob abd distended but a little softer, no guarding 11/17/18 12:34 Objective: Vital Signs Temp Pulse Resp BP Pulse Ox 36.7 C 69 18 139/61 H 97 11/17/18 11:19 11/17/18 11:19 11/17/18 11:19 11/17/18 11:19 11/17/18 11:19 Laboratory Results 11/17/18 04:31 11/17/18 04:31 11/16/18 11/17/18 11/18/18 05:59 05:59 05:59 Intake Total 1800 2400 Output Total 2700 3550 Balance -900 -1150 ICD10 Worksheet Patient Problems: Problems Problem Status Onset SBO (small bowel obstruction) Acute Closed left ankle fracture Acute Head injury Acute Injury, knee Acute Scalp laceration Acute
--- NOTE | 2018-11-17 17:39 | HOSPPROG ---
Hospitalist Progress Note Assessment/Plan: Subjective Follow-up on ileus versus small-bowel obstruction. Patient has noted more flatus today. No worsening pain. I did review his case over the phone with Neeta who is the physician classroom assistant with Dr. Saldaña working on his case. We reviewed the scalp sutures in the posterior scalp as well as the marcela in his legs. The scalp sutures can come out today as a been in for 7 days. It is recommended that the marcela in his legs be removed on 11/23/2018. Objective Vitals as detailed below Exam General-awake alert conversant no acute distress, NG tube in place Heart-regular rate and rhythm no murmurs Lungs-Clear to auscultation with normal respiratory effort Abdomen-distended, high-pitched bowel sounds -Lorenzo catheter in place Extremities-no significant pitting edema or calf pain with palpation Skin-no concerning skin rashes noted, suture site at posterior scalp appears to have healed well, no purulence or erythema Labs as detailed below Assessment and plan Ileus versus small-bowel obstruction-continue supportive IV fluids and NG tube suction. I appreciate surgery's assistance on the case as well. Bilateral quadriceps tendon rupture-patient is status post surgery. Continue bracing nonweightbearing. He will need follow-up on 11/23/2018 with Orthopedic surgery to remove marcela in his legs. These wounds were assessed yesterday by nursing and no concerns were expressed regarding appearance. An order to remove scalp sutures was given today. Leukocytosis-suspect reactive. Monitor for any fevers. Anemia-hemoglobin decreased from 10-8 overnight. Suspect delusional most likely. He was however on therapeutic dosing of Lovenox which I think we should adjust to DVT prevention dosing at 40 mg twice a day. Acute hypoxic respiratory failure-likely secondary to atelectasis from significant abdominal distension. Wean oxygen as able. Hypertension-continue outpatient antihypertensives. Diabetes mellitus type 2-A1c pending. DVT prophylaxis-patient had been on Xarelto 10 mg daily as outpatient. Continue with Lovenox 40 mg twice daily. Plan on resuming Xarelto once able to tolerate a diet. Disposition-anticipate returning to rehab once cleared from medical and surgical standpoint. Objective: Vital Signs Temp Pulse Resp BP Pulse Ox 36.7 C 67 12 133/65 H 94 11/17/18 15:40 11/17/18 15:40 11/17/18 15:40 11/17/18 15:40 11/17/18 15:40 Laboratory Results 11/17/18 04:31 11/17/18 04:31 11/16/18 11/17/18 11/18/18 05:59 05:59 05:59 Intake Total 1800 2400 Output Total 2700 3550 Balance -900 -1150 ICD10 Worksheet Patient Problems: Problems Problem Status Onset SBO (small bowel obstruction) Acute Closed left ankle fracture Acute Head injury Acute Injury, knee Acute Scalp laceration Acute
[2018-11-18] MEDS: NS 1,000 ML IV SCH (05:25)
[2018-11-18 05:34] LABS: PLATELET COUNT 265 10^3/uL (150-400)
[2018-11-18] MEDS: ENOXAPARIN 40 MG/0.4 ML SYR SC SCH ×2 (10:20→20:59)
--- NOTE | 2018-11-18 11:20 | HOSPPROG ---
Addendum entered and electronically signed by Shaq Naqvi MD 15:19: NG out , tolerating PO, passing gas and has had multiple BMs. await clearance by general surgery. Original Note: Hospitalist Progress Note Assessment/Plan: Ileus versus small-bowel obstruction-continue supportive IV fluids and NG tube suction. I appreciate surgery's assistance on the case as well. Multiple BMs overnight. Has been sneaking fluids. -ADAT today -Stop fluids -surgery following Bilateral quadriceps tendon rupture-patient is status post surgery. Continue bracing nonweightbearing. He will need follow-up on 11/23/2018 with Orthopedic surgery to remove marcela in his legs. These wounds were assessed with no concerns. Leukocytosis-suspect reactive. Monitor for any fevers. Anemia-hemoglobin decreased from 10-8 overnight. Suspect delusional most likely. He was however on therapeutic dosing of Lovenox which I think we should adjust to DVT prevention dosing at 40 mg twice a day. Acute hypoxic respiratory failure-likely secondary to atelectasis from significant abdominal distension. Wean oxygen as able. Hypertension-continue outpatient antihypertensives. Diabetes mellitus type 2-A1c pending. DVT prophylaxis-patient had been on Xarelto 10 mg daily as outpatient. Continue with Lovenox 40 mg twice daily. Plan on resuming Xarelto once able to tolerate a diet. Disposition-Possible DC today pending surgery input and taking PO, passing BM. Subjective: multiple BMs overnight and today. No ab pain, no NV, hungry Objective: Vital Signs Temp Pulse Resp BP Pulse Ox 36.7 C 61 18 132/63 H 96 11/18/18 08:40 11/18/18 08:40 11/18/18 08:40 11/18/18 08:40 11/18/18 08:40 Laboratory Results 11/18/18 04:31 11/18/18 04:31 11/17/18 11/18/18 11/19/18 05:59 05:59 05:59 Intake Total 2400 1761 500 Output Total 3550 2650 Balance -1150 -889 500 - Physical Exam Constitutional: no apparent distress, appears nourished, not in pain Eyes: PERRL, anicteric sclera, EOMI Ears, Nose, Mouth, Throat: moist mucous membranes, hearing normal, ears appear normal, no oral mucosal ulcers Cardiovascular: regular rate and rhythym, no murmur, rub, or gallop Respiratory: no respiratory distress, no rales or rhonchi, clear to auscultation Gastrointestinal: normoactive bowel sounds, soft, non-tender abdomen, no palpable masses Genitourinary: no bladder fullness, no bladder tenderness, no renal bruits Skin: no rashes or abrasions, no fluctuance, no induration Musculoskeletal: full muscle strength, no muscle tenderness, normal joint ROM Neurologic: AAOx3, sensation intact bilaterally Psychiatric: interacting appropriately, not anxious, not encephalopathic, thought process linear Lymph, Heme, Immunologic: no cervical LAD, no supraclavicular LAD ICD10 Worksheet Patient Problems: Problems Problem Status Onset SBO (small bowel obstruction) Acute Closed left ankle fracture Acute Head injury Acute Injury, knee Acute Scalp laceration Acute
--- NOTE | 2018-11-18 15:28 | ASMTCMCOM ---
CM Note CM Note Notes: CM spoke with DICKSON Ibarra. NG tube removed and advancing diet, currently on clear liquids, pending surgery consult today. [facility] responded via [employer] they will accept as NG tube has been removed. They are also asking about Cimzia being put on hold, CM responded the patient is currently not on any home meds/not currently on Cimzia SubQ. Patient will not require O2 & will need stretcher at transport as he is currently non weight bearing. CM to follow. D/C Plan: Return to [facility]. Date Signed: 11/18/2018 03:26 PM Electronically Signed By:Debbie Upton
[2018-11-19 05:56] LABS: PLATELET COUNT 311 10^3/uL (150-400)
[2018-11-19 08:27] VITALS: BP 143/70
--- NOTE | 2018-11-19 08:34 | SOAPPROG ---
SOAP Progress Note Assessment/Plan: Assessment/plan: 68 Y M recent B ankle sprains complicated by quadriceps tendon rupture admitted with likely ileus. Passed big BM last night. NG tube is out. Tolerating light diet. Dispo: Ok to go back to [place] from surgical standpoint S: Had big BM last night. Denies abdominal pain. Tolerating light diet. O: Alert Afebrile No increased WOB Abdomen: soft, nontender, nondistended, normoactive BS 11/19/18 08:31 Objective: Vital Signs Temp Pulse Resp BP Pulse Ox 36.2 C 70 17 143/70 H 95 11/19/18 08:00 11/19/18 08:00 11/19/18 08:00 11/19/18 08:00 11/19/18 08:00 Laboratory Results 11/19/18 04:50 11/18/18 04:31 11/18/18 11/19/18 11/20/18 05:59 05:59 05:59 Intake Total 1761 500 Output Total 2650 1000 650 [facility] -889 -500 -650 ICD10 Worksheet Patient Problems: Problems Problem Status Onset SBO (small bowel obstruction) Acute Closed left ankle fracture Acute Head injury Acute Injury, knee Acute Scalp laceration Acute
--- NOTE | 2018-11-19 09:55 | PDIAF ---
- Diagnosis Code Status: Full Code - Medication Management Discharge Medications: electronically signed and located in the Home Medication List. - Orders Services needed: Registered Nurse, Physical Therapy, Occupational Therapy Diet Recommendation: no restrictions on diet Diet Texture: Regular Texture Diet Additional Instructions: Follow a high fiber diet. Follow up in Dr. Marquez' office in 2 weeks. Will need marcela out on 11/23/18 Call with worsening symptoms. - Follow Up Care Current Providers and Referrals: AMILCAR HORTON DR [Other] Eddi Saldaña MD [Medical Doctor] - (CALL FOR ORTHO APPT. TO BE SEEN IN OFFICE 7-10 DAYS AFTER INITIAL ADMISSION- THIS WOULD BE 11/20-11/23/18 FOR SURGICAL LEG SUTURE REMOVAL AND EVALUATION.) Roby Marquez MD [Medical Doctor] - follow up in 2 weeks
[2018-11-19] MEDS: ENOXAPARIN 40 MG/0.4 ML SYR SC SCH (10:49)
--- NOTE | 2018-11-19 13:46 | ASMTDCNOTE ---
Case Management Discharge Discharge Order Complete? Answers: Yes Patient to Obtain Answers: Other Notes: [facility] Medications Transportation Arranged Answers: [facility] Stretcher Transport will Pick (Date 11/19/2018 01:30 PM & Time) Case Management Transport Answers: Yes Notes: faxed to [facility] Form Complete Agency/Facility Transfer Answers: Yes Notes: via [employer] Report Printed & Faxed to Receiving Agency Family Notified Answers: No Discharge Comments Notes: CM call to [facility] to inform [facility] the patient will discharge today, [facility] set up transport scheduled for 1pm today. CM sent completed referral via [employer]. signed with Katie. CM updated DICKSON Pérez, CM available to follow if discharge needs arise. Date Signed: 11/19/2018 01:45 PM Electronically Signed By:Debbie Upton
--- NOTE | 2018-11-19 15:11 | PDDCSUM ---
Discharge Summary Discharge Summary: Discharge diagnosis Postop ileus Bilateral quadriceps tendon rupture Type 2 diabetes insulin-dependent Hypertension Anemia BPH Leukocytosis Patient presents to the emergency room with abdominal pain and had not had a bowel movement days. He was postop from ruptured quadriceps tendon repair. CT abdomen was obtained which showed massive fluid filled distention of the stomach with diffuse small bowel distention and fluid filled distention of the cecum. Findings are most compatible with ileus although small bowel obstruction is not excluded given the degree of small bowel distention. NG tube was placed and he was made NPO. General surgery was consulted who recommended medical management with NG tube NPO and fluids. After about 2 days NG tube was pulled and he started having bowel movements. On November 19 he had a number of large bowel movements was able to tolerate an oral diet with no problems and no longer had any abdominal pain. He was discharged back to SNF for continued rehab in good condition to follow up with Orthopedic surgery and with his primary care physician for further medical management. Disposition [facility] group home Facility Consultation General surgery I spent over 30 min on the discharge of this patient
--- NOTE | 2018-11-23 12:20 | GCON ---
[f rep st] CONSULTATION DATE OF CONSULTATION: 11/15/2018 HISTORY OF PRESENT ILLNESS: Patient is a 68-year-old male who is in the hospital following surgery f or bilateral ankle sprains and bilateral quadriceps tendon ruptures. He has recently been at a [facility] h [facility], developed a massive abdominal distention and ileus. I was consulted for evaluation. He has no vomiting, but has very little flatus and feels short of breath because of the abdominal distentio n. X-rays reveal a massive amount of gas throughout his colon and stomach. ALLERGIES: None present. MEDICATIONS: Metformin, Flomax, glipizide, Cimzia, and Proscar. PAST MEDICAL HISTORY: Includes diabetes, hypertension, BPH. PAST SURGICAL HISTORY: Includes bilateral quadriceps tendon repair. SOCIAL HISTORY: Reveals he does not smoke. REVIEW OF SYSTEMS: A 10 point review of systems is negative, except as related to the HPI. PHYSICAL EXAMINATION: GENERAL: An alert 68-year-old male who is uncomfortable, but quite cooperativ e and afebrile. HEAD/NECK: Reveals no icterus, adenopathy, or oral lesions. He is PERRLA. Neck is supple. Full range of motion. No masses. CHEST: Clear and symmetric. CARDIAC: Regular rhythm. ABDOMEN: Markedly distended, but very soft, minimally tender. Some bowel sounds present. PELVIC: Pelvis is intact with no evidence of trauma. EXTREMITIES: Full range of motion, except for his leg s, which are both in splints. He does have good capillary refill in both feet. NEUROLOGIC: Physiol ogic and symmetric. PSYCH: Exam reveals him to be alert, cooperative, and oriented. SKIN: No alana r lesions. IMPRESSION: Ileus. At the present time, would recommend nasogastric tube, n.p.o., intravenous fluid s, and possibly cathartics. Also consider Reglan and maybe Relistor if he has been taking enough scott n medicine to cause this problem. We will follow along with you. /[id number]/MODL
[2018-11-24] MEDS ORDERED: CERTOLIZUMAB PEGOL 400 MG SQ SCH (09:00)
== END 2018-11-19 13:25 | DRG 394 ==
LOC: EDUNIT# → F3E 11-16 00:09
PROVIDERS: ADMIT Internal Medicine; ATTEND Internal Medicine
DX: K91.89 Other postprocedural complications and disorders of digestive system (principal); K56.609 Unspecified intestinal obstruction, unspecified as to partial versus complete obstruction; E11.9 Type 2 diabetes mellitus without complications; Z79.84 Long term (current) use of oral hypoglycemic drugs; I10 Essential (primary) hypertension; D64.9 Anemia, unspecified; N40.0 Benign prostatic hyperplasia without lower urinary tract symptoms; S76.111D Strain of right quadriceps muscle, fascia and tendon, subsequent encounter; S76.112D Strain of left quadriceps muscle, fascia and tendon, subsequent encounter; W18.39XD Other fall on same level, subsequent encounter
CPT/HCPCS: 97162-GP; 97166-GO; 97530-GO; 97530-GP; J1170; J1650; J3360; Q9967

== ENCOUNTER 2018-12-05 03:10 | Emergency (ER) | payer OTHER ==
[2018-12-05] MEDS ORDERED: LIDOCAINE 2% JELLY 20 ML (UROJECT) UR ONE (03:23)
[2018-12-05] MEDS ORDERED: HYDROCODONE/APAP 5/325 TAB PO ONE (03:56)
--- NOTE | 2018-12-05 04:09 | EDPHY ---
H & P Stated Complaint: Urinary Retention Time Seen by Provider: 12/05/18 03:22 HPI/ROS: HPI The patient presents brought in by ambulance from [facility] for urinary retention. He has had Lorenzo catheter intermittently during his hospitalization and time at rehab. It was removed about 24 hr ago and he is only been able to urinate minimally since then. He feels very distended and this is getting increasingly more severe. He has not had any urine infection recently. REVIEW OF SYSTEMS 10 systems were reviewed and negative with the exception of the elements mentioned in the history of present illness. PMHx: Recent bilateral quadriceps tendon rupture status post repair, recent hospital admission for ileus Soc Hx: Currently at [facility] PHYSICAL General Appearance: Alert, no distress Eyes: Pupils equal and round no pallor or injection ENT, Mouth: Mucous membranes moist Respiratory: Breathing comfortably Gastrointestinal: Abdomen is somewhat distended Extremities: Splints in place on both legs Psychiatric: Patient is oriented X 3, there is no agitation Source: Patient Exam Limitations: No limitations - Personal History Current Tetanus/Diphtheria Vaccine: Unsure Current Tetanus Diphtheria and Acellular Pertussis (TDAP): Unsure - Medical/Surgical History Hx Asthma: No Hx Chronic Respiratory Disease: No Hx Diabetes: Yes Hx Cardiac Disease: No Hx Renal Disease: No Hx Cirrhosis: No Hx Alcoholism: No Hx HIV/AIDS: No Hx Splenectomy or Spleen Trauma: No Other PMH: DM, prostititis, psoriasis,BPH,HTN, bilateral ruptured quad's, - Social History Smoking Status: Never smoked Constitutional: Initial Vital Signs Temperature (C) 36.4 C 12/05/18 03:16 Heart Rate 85 12/05/18 03:16 Respiratory Rate 18 12/05/18 03:16 Blood Pressure 159/85 H 12/05/18 03:16 O2 Sat (%) 97 12/05/18 03:16 O2 Delivery Mode Room Air Allergies/Adverse Reactions: No Known Allergies Allergy (Verified 12/05/18 03:14) Home Medications: Medication Instructions Recorded Finasteride [Proscar 5 MG (*)] 5 mg PO DAILY 11/08/18 Metformin HCl [Metformin 1000 mg] 1,000 mg PO BID 11/08/18 Tamsulosin HCl 0.8 mg PO BID 11/08/18 glipiZIDE [Glipizide ER] 5 mg PO DAILY 11/08/18 Certolizumab Pegol [Cimzia] 400 mg SQ Q30D 11/10/18 Acetaminophen [Tylenol ES 500 mg 1,000 mg PO Q8 tab 11/13/18 (*)] Lisinopril [Zestril 10 mg (*)] 10 mg PO DAILY tab 11/13/18 Methocarbamol [Robaxin 750 mg (*)] 750 mg PO TID PRN tab 11/13/18 Polyethylene Glycol 3350 [Miralax 17 gm PO BID pkt 11/13/18 17 gm (*)] Rivaroxaban [Xarelto 10mg (*)] 10 mg PO DAILY tab 11/13/18 Sennosides/Docusate Sodium 1 - 2 tab PO BID tab 11/13/18 [Senokot-S] oxyCODONE IR [Oxycodone Ir (*)] 5 - 10 mg PO Q3HRS PRN tab 11/13/18 Medical Decision Making Differential Diagnosis: 68-year-old man with recurrent urinary retention presents brought in by ambulance from rehab facility. Bladder scan reveals 1100 mL of urine within his bladder. Lorenzo catheter placed without difficulty with return of large amount of urine. UA shows no sign of infection. Patient will be discharged with catheter in place. He has follow-up with Dr. Zendejas of Urology given his recurrent episodes of urinary retention. He has already on tamsulosin. - Data Points Medications Given: Discontinued Medications Hydrocodone Bitart/Acetaminophen ([place] 5/325) 2 tab PO EDNOW ONE Stop: 12/05/18 03:57 Last Admin: 12/05/18 04:01 Dose: Not Given Lidocaine (Uroject Lidocaine 2% Jelly) 20 ml UR EDNOW ONE Stop: 12/05/18 03:24 Last Admin: 12/05/18 03:31 Dose: 20 ml Departure - Departure Disposition: Home, Routine, Self-Care Clinical Impression: Urinary retention Condition: Good Instructions: Lorenzo Catheter Placement and Care (ED) Referrals: Zulema Higgins MD [Medical Doctor] - As per Instructions
[2018-12-05 04:16] VITALS: BP 161/60
== END 2018-12-05 04:34 | disposition home or self-care (01) ==
LOC: EDUNIT#
PROC: 0T9B70Z Drainage of Bladder with Drainage Device, Via Natural or Artificial Opening (ICD-10-PCS; principal; 2018-12-05)
PROC: 4A0D7LZ Measurement of Urinary Volume, Via Natural or Artificial Opening (ICD-10-PCS; principal; 2018-12-05)
DX: R33.9 Retention of urine, unspecified (principal); N40.1 Benign prostatic hyperplasia with lower urinary tract symptoms; E11.9 Type 2 diabetes mellitus without complications; I10 Essential (primary) hypertension; Z79.84 Long term (current) use of oral hypoglycemic drugs

== ENCOUNTER 2019-01-14 08:02 | Observation (INO) | payer OTHER ==
[~2019-01-14 08:02] MED LIST: GENTAMICIN SULFATE 120 MG in D5W 100 ML IV ONE; VANCOMYCIN 1.25 GM in NS 250 ML IV ONE
[2019-01-14] MEDS ORDERED: LR 1,000 ML IV ONE (08:48)
--- NOTE | 2019-01-14 10:18 | PDHPUP ---
History & Physical Update H&P update statement: This history and physical update is based on an assessment of the patient which was completed after admission or registration (within 24 hours), but prior to the surgery/procedure. H&P update: H&P reviewed & patient examined, no change in patient's condition since H&P completed
--- NOTE | 2019-01-14 10:27 | PDANEPAE ---
ANE History of Present Illness BPH here TURP ANE Past Medical History - Cardiovascular History Hx Hypertension: Yes Hx Arrhythmias: No Hx Chest Pain: No Hx Coronary Artery / Peripheral Vascular Disease: No Hx CHF / Valvular Disease: No Hx Palpitations: No - Pulmonary History Hx COPD: No Hx Asthma/Reactive Airway Disease: No Hx Recent Upper Respiratory Infection: No Hx Oxygen in Use at Home: No Hx Sleep Apnea: Yes Sleep Apnea Screening Result - Last Documented: Positive - Neurologic History Hx Cerebrovascular Accident: No Hx Seizures: No Hx Dementia: No - Endocrine History Hx Diabetes: Yes Endocrine History Comment: DM II - Renal History Hx Renal Disorders: No Renal History Comment: BPH - Liver History Hx Hepatic Disorders: No - Neurological & Psychiatric Hx Hx Neurological and Psychiatric Disorders: No - Cancer History Hx Cancer: No - Congenital Disorder History Hx Congenital Disorders: No - GI History Hx Gastrointestinal Disorders: No Gastrointestinal History Comment: POST OP ILEUS - Other Health History Other Health History: PSORIASIS - CIMZIA - Chronic Pain History Chronic Pain: No - Surgical History Prior Surgeries: PALMER QUDRICEPS REATTACHMENT 11/09/18 ANE Review of Systems Review of Systems: - Exercise capacity METS (RN): 4 METS ANE Patient History - Allergies Allergies/Adverse Reactions: No Known Allergies Allergy (Verified 12/05/18 03:14) - Home Medications Home medications: home medication list seen and reviewed Home Medications: Finasteride [Proscar 5 MG (*)] 5 mg PO DAILY 11/08/18 [Last Taken 01/14/19] Metformin HCl [Metformin 1000 mg] 1,000 mg PO BID 11/08/18 [Last Taken 01/12/19] Tamsulosin HCl 0.8 mg PO BID 11/08/18 [Last Taken 01/14/19] glipiZIDE [Glipizide ER] 5 mg PO DAILY 11/08/18 [Last Taken 01/13/19] Certolizumab Pegol [Cimzia] 400 mg SQ Q30D 11/10/18 [Last Taken 10/27/18] Herbals/Supplements -Info Only 01/06/19 [Last Taken Unknown] - NPO status NPO Status: no food or drink >8 hours NPO Since - Liquids (Date): 01/14/19 NPO Since - Liquids (Time): 07:15 NPO Since - Solids (Date): 05/22/19 NPO Since - Solids (Time): 19:30 - Anes Hx Anes Hx: no prior problems - Smoking Hx Smoking Status: Never smoked - Alcohol Use Alcohol Use: Rarely - Family Anes Hx Family Hx Anesthesia Complications: NEG ANE Labs/Vital Signs - Vital Signs Blood Pressure: 147/80 Heart Rate: 68 Respiratory Rate: 18 O2 Sat (%): 95 Height: 168.91 cm Weight: 92.986 kg ANE Physical Exam - Airway Neck exam: FROM Mallampati Score: Class 3 Mouth exam: normal dental/mouth exam - Pulmonary Pulmonary: no respiratory distress, clear to auscultation - Cardiovascular Cardiovascular: regular rate and rhythym, no murmur, rub, or gallop - ASA Status ASA Status: III ANE Anesthesia Plan Anesthesia Plan: GA w LMA
[2019-01-14] MEDS ORDERED: LIDOCAINE 2% 100 MG/5 ML SYR ONE (10:35)
[2019-01-14] MEDS ORDERED: PROPOFOL 200 MG/20 ML VIAL ONE (10:35)
[2019-01-14] MEDS ORDERED: fentaNYL 100 MCG/2 ML INJ ONE ×3 (10:35→13:51)
[2019-01-14] MEDS ORDERED: LIDOCAINE 2% JELLY 20 ML (UROJECT) ONE (10:37)
[2019-01-14] MEDS ORDERED: OPIUM/BELLADONNA ALKALO SUPP PR ONE (10:38)
[2019-01-14] MEDS ORDERED: DEXAMETHASONE 4 MG/ML VIAL ONE (11:22)
[2019-01-14] MEDS ORDERED: ONDANSETRON 4 MG/2 ML VIAL ONE (11:22)
[2019-01-14] MEDS ORDERED: oxyCODONE IR 5 MG TAB PO PRN (13:40)
[2019-01-14] MEDS ORDERED: HYDROmorphONE/DILAUDID 1 MG/ML INJ IVP PRN ×2 (13:40→14:11)
[2019-01-14] MEDS ORDERED: ACETAMINOPHEN 500 MG TAB PO PRN (13:40)
[2019-01-14] MEDS ORDERED: NALOXONE HCL 0.4 MG/ML INJ IVP PRN (13:40)
[2019-01-14] MEDS ORDERED: fentaNYL 100 MCG/2 ML INJ IVP PRN (13:40)
[2019-01-14] MEDS ORDERED: ONDANSETRON 4 MG/2 ML VIAL IVP PRN ×2 (13:40→14:11)
[2019-01-14] MEDS ORDERED: HYDROCODONE/APAP 5/325 TAB PO PRN ×2 (13:40→14:11)
--- NOTE | 2019-01-14 13:41 | POSTANESTH ---
Post Anesthetic Evaluation Cardiovascular Status: Normal, Stable, Similar to Pre-Op Cond Respiratory Status: Normal, Stable, Similar to Pre-op Cond. Level of Consciousness/Mental Status: Can Participate in Eval, Alert and Oriented Pain Control: Adequate, Prn Tx Ordered Nausea/Vomiting Control: Adequate, Prn Tx Ordered Complications Possibly Related to Anesthesia: None Noted
[2019-01-14] MEDS ORDERED: OPIUM/BELLADONNA ALKALO SUPP PR PRN (14:11)
--- NOTE | 2019-01-14 14:11 | POSTOPPROG ---
Post Op Note Date of Operation: 01/14/19 Surgeon: Zulema Higgins Anesthesiologist: Teresita Anesthesia: GET(General Endotracheal) Pre-op Diagnosis: BPH Post-op Diagnosis: same Indication: urinary retention, BPH 130g prostate Procedure: cysto, TURP in saline Findings: urinary retention, BPH 130g prostate Inf/Abcess present in the surg proc area at time of surgery?: No EBL: 100-500 Complications: none, pt tolerated procedure well Drains: Other (bey) Specimen(s): prostate chips
[2019-01-14] MEDS ORDERED: D5W LR 1,000 ML IV SCH (14:15)
[2019-01-14] MEDS: SENNOSIDES/DOCUSATE SODIUM TAB PO SCH (19:57)
[2019-01-15] MEDS: SENNOSIDES/DOCUSATE SODIUM TAB PO SCH (08:44)
[2019-01-15] MEDS ORDERED: POLYETHYLENE GLYCOL 3350 17 GM PKT PO SCH (09:00)
[2019-01-15] MEDS ORDERED: VANCOMYCIN 1.25 GM in NS 250 ML IV ONE (09:00)
--- NOTE | 2019-01-15 14:19 | SOAPPROG ---
SOAP Progress Note Assessment/Plan: Assessment: s/p TURP Doing well Plan: Voiding trial. If fails, then bey to be placed and then removed next week. 01/15/19 14:17 Subjective: NAEON NO pain +ambulation Jesus diet Urine clear, CBI off Objective: Vital Signs Temp Pulse Resp BP Pulse Ox 36.7 C 69 16 139/62 H 97 01/15/19 11:57 01/15/19 11:57 01/15/19 11:57 01/15/19 11:57 01/15/19 11:57 01/14/19 01/15/19 01/16/19 05:59 05:59 05:59 Intake Total 2750 Output Total 664 1000 Balance 2086 -1000 Gen NAD A*O CV regular Lungs normal effort Abd soft Ext warm fill and pull performed. ICD10 Worksheet Patient Problems: Problems Problem Status Onset Closed left ankle fracture Acute Head injury Acute Injury, knee Acute SBO (small bowel obstruction) Acute Scalp laceration Acute
[2019-01-15] MEDS ORDERED: BISACODYL 10 MG SUPP PR ONE (14:30)
--- NOTE | 2019-01-15 16:06 | ASMTLACE ---
LACE Length of stay for Answers: 1 day current admission Acuity / Level of Answers: No Care: Did the patient have an inpatient admission? Comorbidities - select Answers: Diabetes (uncontrolled or all that apply controlled) Other Notes: HTN # of Emergency department Answers: 3-4 visits in the last 6 months Score: 6 Date Signed: 01/15/2019 04:05 PM Electronically Signed By:Danae Gonzales RN
[2019-01-15 16:29] VITALS: BP 143/87
--- NOTE | 2019-01-15 20:58 | GOP ---
[f rep st] OPERATIVE REPORT DATE OF OPERATION: 01/14/2019 SURGEON: Zulema Higgins MD ANESTHESIA: General. ANESTHESIOLOGIST: Dr. Lo. PREOPERATIVE DIAGNOSIS: Benign prostatic hypertrophy, urinary retention. POSTOPERATIVE DIAGNOSIS: Benign prostatic hypertrophy, urinary retention. PROCEDURE PERFORMED: Cystoscopy, transurethral resection of prostate in saline. FINDINGS: Extremely large prostate, measured in my office to be 130 g with an extremely large median lobe. SPECIMENS: Prostate chips. ESTIMATED BLOOD LOSS: 150 mL. INDICATIONS: The patient unfortunately underwent recent bilateral quadriceps tendon tears. He under went surgery for those, and after that surgery was unable to void. He was catheter dependent. This was 2 months ago. He presented to my office for evaluation. Office cystoscopy demonstrated prostato megaly with extremely large median lobe and trilobar hypertrophy. His prostate was measured with ult rasound to be 130 g. I felt that TURP was an appropriate procedure for him due to the shape of the p rostate, and so he presents today for TURP. I discussed the risks, including bleeding, infection, pa in, injury to the urethra or the bladder, the ureteral orifices, need for subsequent procedures, smal l risk of urethral stricture of bladder neck contracture. I did say that retrograde ejaculation is h ighly likely. He understood all these risks and agreed to proceed. DESCRIPTION OF PROCEDURE: The patient was taken back to the cystoscopy suite, placed on the cystosco py table in the supine position. General anesthesia induced without complication. Time-out performe d. Core measures satisfied, including placement of a Alvarez Hugger, SCDs and administration of vancomy adeline and Rocephin antibiotics due to recent multiresistant Staph epidermidis urinary tract infection. He was brought to the operating room table, placed in dorsal lithotomy position. All pressure point s padded. Genitalia draped and prepped in standard surgical fashion. The urethral meatus was dilate d due to his chronic Lorenzo. I was able to advance the visual obturator through the anterior and bulb ar urethra. Once I got to the prostatic urethra, it was a long advancement into the bladder and also that median lobe was very obstructing. I assembled the TURis resectoscope and then began resecting the median lobe. It was massive. I dissected it back to just proximal to the veru. I then resected the left lateral lobe, then the right lateral lobe, then the anterior tissue. I used an Ellik evacu ator throughout to remove the multiple chips that would obscure, especially at the area of the veru. I checked the veru and the ureteral orifices throughout the procedure to make sure they were not jalen lated. There was quite a bit of hematuria with each swipe, as he was inflamed from the Lorenzo cathete r. I did encounter pockets of old abscess or prostatitis, and unroofed these during the resection. At the end, he was wide open when sitting at the veru, and I felt he got an excellent resection. All the prostate chips were gathered. Hemostasis was ensured with electrocautery throughout, and especi ally at the end of the case. At the end of the case, both the ureteral orifices were untouched, the veru was untouched, and at this point, I removed the resectoscope sheath and then placed a 24-Yor[place] 3-way Lorenzo catheter with return of clear light pink urine. I irrigated manually with normal saline and then inflated the balloon with 45 mL of normal saline, connected to continuous bladder irrigation . At this point, I considered the procedure complete. I did place a belladonna opium suppository pe r rectum. He was awoken from anesthesia and transferred to PACU in good condition. COMPLICATIONS: None. The patient tolerated the procedure well. /[id number]/MODL
== END 2019-01-15 17:45 | disposition home or self-care (01) ==
LOC: FSGY 08:02 → F3E 14:11 → F1N 15:02
PROVIDERS: ADMIT Urology; ATTEND Urology
PROC: 0VB08ZZ Excision of Prostate, Via Natural or Artificial Opening Endoscopic (ICD-10-PCS; principal; 2019-01-14 10:15)
DX: N40.1 Benign prostatic hyperplasia with lower urinary tract symptoms (principal); R33.9 Retention of urine, unspecified; I10 Essential (primary) hypertension; E78.5 Hyperlipidemia, unspecified; E11.9 Type 2 diabetes mellitus without complications; G47.33 Obstructive sleep apnea (adult) (pediatric)
CPT/HCPCS: 52601; J0696; J1100; J1170; J2001; J2405; J2704; J3010; J3370; J1580